=== PATIENT | female | born 1975 | race Caucasian/White ===

== ENCOUNTER 2018-09-10 12:48 | Outpatient (CLI) | payer MEDICAID, SELFPAY ==
--- NOTE | 2018-09-10 13:20 | DI.MAMMO_ITS ---
SYMPTOMS/DIAGNOSIS: SCREENING, Z12.39 MAMMOGRAMS: Mammograms were interpreted according to the usual protocol including computer analysis with CAD system, tomosynthesis and C view imaging. This is a baseline examination. No suspicious masses or microcalcifications are seen. There is no definite evidence of malignancy. IMPRESSION: Negative mammogram. Routine screening is recommended. Category 1, breast density B. MQSA ASSESSMENT OF FINDINGS: Negative. Category 1. Patient will receive a letter notifying them of these results. BI-RADS category B. There are scattered areas of fibroglandular density.
== END 2018-09-10 13:08 ==
PROVIDERS: PCP Internal Medicine; Visit Provider Nurse Practitioner Family
DX: Z12.31 Encounter for screening mammogram for malignant neoplasm of breast (principal)
CPT/HCPCS: 77063; 77067

== ENCOUNTER 2018-09-16 11:23 | Outpatient (REF) | payer MEDICAID, SELFPAY ==
--- NOTE | 2018-09-16 09:45 | PAPFT_PTH ---
PATIENT: Prabha Chen LOC: [facility] U#:[id number] AGE/SX: 42/F ROOM: RE09/16/[address]: FELISHA Barrera : 1975 BED: DIS: 09/16/2018 SPEC #: [id number] RECD: 09/16/18 12:45 STATUS: [place] REEsther #: [id number] MONCHO: 09/16/18 09:[address]: Jenn Dan DEPT: [facility] Cytology RECD BY: Mary Jane Sánchez ENTERED: 09/16/18 12:46 SP TYPE: PAPFT OTHR DR: Johnnie Peck Tissues: 1 - CX/ENDOCX FOR PAP SMEARS Procedures: PAP THIN PREP/UVM Screening HPV DNA PROBE Comments: [id number]
[2018-09-17 14:19] LABS: Chlamydia Result Negative; GC Result Negative; Specimen Description CERVIX
== END 2018-09-16 11:43 ==
LOC: LBN 11:23
PROVIDERS: PCP Internal Medicine; Visit Provider Nurse Practitioner Family
DX: Z11.3 Encounter for screening for infections with a predominantly sexual mode of transmission (principal); Z12.4 Encounter for screening for malignant neoplasm of cervix; Z11.51 Encounter for screening for human papillomavirus (HPV)
CPT/HCPCS: 87491; 87591; 88142; 87624

== ENCOUNTER 2019-11-23 13:52 | Outpatient (REF) | payer MEDICAID, SELFPAY | END 2019-11-23 14:12 | LOC: NCHCN 13:52 | PROVIDERS: PCP Internal Medicine; Visit Provider Nurse Practitioner Family | DX: N39.0 Urinary tract infection, site not specified (principal) | CPT/HCPCS: 87077; 87086; 87186 ==

== ENCOUNTER 2020-03-15 12:25 | Outpatient (REF) | payer MEDICAID, SELFPAY ==
[2020-03-20 11:28] LABS: Patient Race White; SARS-CoV-2 RNA Undetected (Undetected); SARS-CoV-2 Specimen Source Nasal
== END 2020-03-15 12:45 ==
LOC: NCHCN 12:25
PROVIDERS: PCP Internal Medicine; Visit Provider Physician Assistant
DX: Z20.828 Contact with and (suspected) exposure to other viral communicable diseases (principal)
CPT/HCPCS: U0003

== ENCOUNTER 2020-04-21 20:39 | Outpatient (REF) | payer MEDICAID, SELFPAY ==
[2020-04-21 20:09] LABS: BUN 10 mg/dL (7-18); CREATININE 0.84 mg/dL (0.55-1.02); Calcium 8.6 mg/dL (8.5-10.1); Calculated LDL 83 mg/dL (<100); Chloride 106 mmol/L (98-107); Cholesterol 156 mg/dL (<200); Glucose 97 mg/dL (74-106); HDL Cholesterol 59 mg/dL (40-60); Potassium 4.2 mmol/L (3.5-5.1); Sodium 141 mmol/L (136-145); TSH (W/Ref FT4) 1.78 uIU/mL (0.36-3.74); Triglyceride 73 mg/dL (<150)
== END 2020-04-21 20:59 ==
LOC: NCHCN 20:39
PROVIDERS: PCP Internal Medicine; Visit Provider Nurse Practitioner Family
DX: R63.5 Abnormal weight gain (principal); Z13.220 Encounter for screening for lipoid disorders; Z13.228 Encounter for screening for other metabolic disorders
CPT/HCPCS: 80048; 80061; 84443

== ENCOUNTER 2020-05-18 02:41 | Outpatient (CLI) | payer MEDICAID, SELFPAY ==
--- NOTE | 2020-05-18 | DI.MAMMO_ITS ---
EXAM: MAMMO SCREENING CLINICAL HISTORY: SCREENING, Z12.39. TECHNIQUE: Bilateral full field digital CC and MLO mammographic images were obtained with 3D tomosyn thesis and utilizing computer aided detection (CAD). COMPARISON: Prior baseline mammogram of September 2018 FINDINGS: In the lateral aspect of the right breast there is a new lobulated noncalcified nodule measuring 9 x 6 millimeters located 10 centimetres in from the nipple at approximately the 9-10 o'clock position. Nodular density seen on the MLO view of the same breast 7 centimetres in from the nipple probably rep resents the same nodule, lateral of center. The CC view that there is another slightly smaller nodul e located more laterally. There are no malignant-appearing microcalcification groups in this region or elsewhere in either [address]. No new left breast nodules evident. There is no significant architectural distortion nor skin t hickening-retraction. IMPRESSION: Compared to the prior mammogram 2019 there are new nodules evident in the right breast as described a fidelia. Breast ultrasound recommended. BI-RADS Category 0 - Assessment Incomplete: Need additional imaging evaluation Breast Density - Category B - Scattered areas of fibroglandular density Breast density Category C or D implies that the patient has dense breast tissue. Dense breast tissue can make it harder to find cancer on a mammogram. Dense breast tissue is also associated with an incr eased risk of breast cancer. This information about the result of the mammogram report was provided to the patient to raise their awareness. Use this report when you speak with the patient about their risks for breast cancer, which includes their family history. At that time, you may recommend additional screening tests (Ultrasoun d or MRI) as these tests may add significant information. A negative radiographic report should not delay biopsy if a dominant or clinically suspicious mass is present. Up to ten percent of cancers are not identified on mammography. A negative report may reinforce clinical impression. Adenosis and dense breasts may obscure an underlying neoplasm. False positive reports average 6 to 10%. Patient will receive a letter notifying them of these results.
== END 2020-05-18 03:01 ==
PROVIDERS: PCP Nurse Practitioner Family; Visit Provider Nurse Practitioner Family
DX: N63.12 Unspecified lump in the right breast, upper inner quadrant (principal); Z12.31 Encounter for screening mammogram for malignant neoplasm of breast
CPT/HCPCS: 77063; 77067

== ENCOUNTER 2020-05-26 03:28 | Outpatient (CLI) | payer MEDICAID, SELFPAY ==
--- NOTE | 2020-05-26 | DI.US_ITS ---
EXAM: MG MAMMO SCREEN CALL BACK UNI and U/S breast RT limited CLINICAL HISTORY: F/U MAMMO, NEW RT BREAST NODULE. TECHNIQUE: Craniocaudal and mediolateral oblique Full Field Digital Mammography views of the right b reast with Computer Aided Diagnosis followed by Tomosynthesis and right breast ultrasound. COMPARISON: Priors available for comparison. FINDINGS: Mammography/Tomosynthesis: Masses/Architectural Distortion: Additional views show a cluster of well-circumscribed nodules in the upper outer quadrant of the right breast. (9-10 o'clock). The 2nd collection previously noted late rally in the right breast appear to represent vessels. Microcalcifictions: No suspicious pleomorphic-type are seen. Skin Thickening/Nipple Retraction: None. Right breast US: Echotexture: Normal appearance of the glandular tissue. Shadowing: No suspicious foci. Cyst: A collection of 3 simple cysts is seen at the 9 o'clock position of the right breast 7 cm from the nipple. These would likely a correspond to the mammographic abnormality. Solid lesions: None seen. Ductal dilation: None. IMPRESSION: 1. No evidence of malignancy is noted. 2. A six-month follow-up right mammogram is recommended for re-evaluation. 3. The findings were discussed with the patient on the date of the examination. BI-RADS Category 3 - 6 month - Probably Benign Finding: Recommend follow-up mammography in 6 months Breast Density - Category B - Scattered areas of fibroglandular density Breast density Category C or D implies that the patient has dense breast tissue. Dense breast tissue can make it harder to find cancer on a mammogram. Dense breast tissue is also associated with an incr eased risk of breast cancer. This information about the result of the mammogram report was provided to the patient to raise their awareness. Use this report when you speak with the patient about their risks for breast cancer, which includes their family history. At that time, you may recommend additional screening tests (Ultrasoun d or MRI) as these tests may add significant information. A negative radiographic report should not delay biopsy if a dominant or clinically suspicious mass is present. Up to ten percent of cancers are not identified on mammography. A negative report may reinforce clinical impression. Adenosis and dense breasts may obscure an underlying neoplasm. False positive reports average 6 to 10%. Patient will receive a letter notifying them of these results.
== END 2020-05-26 03:48 ==
PROVIDERS: PCP Nurse Practitioner Family; Visit Provider Nurse Practitioner Family
DX: R92.8 Other abnormal and inconclusive findings on diagnostic imaging of breast (principal); N63.11 Unspecified lump in the right breast, upper outer quadrant; N60.01 Solitary cyst of right breast
CPT/HCPCS: 76642; 77063; 77067

== ENCOUNTER 2020-10-04 11:19 | Outpatient (REF) | payer MEDICAID, SELFPAY ==
[2020-10-05 13:12] LABS: COVID-19 RT-PCR UVMMC Result Negative (Negative)
== END 2020-10-04 11:20 | disposition home or self-care (01) ==
LOC: NCHCN 11:19
PROVIDERS: PCP Nurse Practitioner Family; Visit Provider Nurse Practitioner Family
DX: Z20.822 Contact with and (suspected) exposure to COVID-19 (principal); J06.9 Acute upper respiratory infection, unspecified
CPT/HCPCS: U0003

== ENCOUNTER 2021-04-04 01:32 | Outpatient (CLI) | payer MEDICAID, SELFPAY ==
--- NOTE | 2021-04-04 14:04 | DI.MAMMO_ITS ---
Exam(s) MAMMO DIAGNOSTIC BI EXAM: MAMMO DIAGNOSTIC BI CLINICAL HISTORY: SHORT TERM F/U, F/U ABNL MAMMO, R92.8. TECHNIQUE: Craniocaudal and mediolateral oblique Full Field Digital Mammography views of the bilater al breast with Computer Aided Diagnosis followed by Tomosynthesis. COMPARISON: Priors available for comparison. FINDINGS: Mammography/Tomosynthesis: Masses/Architectural Distortion: The well-circumscribed nodules in the outer right breast appears sta ble. No suspicious masses or areas of architectural distortion are identified. Microcalcifictions: No suspicious pleomorphic-type are seen. Skin Thickening/Nipple Retraction: None. IMPRESSION: 1. No evidence of malignancy is noted. 2. Unless there is more urgent need, follow-up screening mammography is recommended, as per [place] [employer] guidelines. 3. The findings were discussed with the patient on the date of the examination. BI-RADS Category 1 - Negative Breast Density - Category B - Scattered areas of fibroglandular density Breast density Category C or D implies that the patient has dense breast tissue. Dense breast tissue can make it harder to find cancer on a mammogram. Dense breast tissue is also associated with an incr eased risk of breast cancer. This information about the result of the mammogram report was provided to the patient to raise their awareness. Use this report when you speak with the patient about their risks for breast cancer, which includes their family history. At that time, you may recommend additional screening tests (Ultrasoun d or MRI) as these tests may add significant information. A negative radiographic report should not delay biopsy if a dominant or clinically suspicious mass is present. Up to ten percent of cancers are not identified on mammography. A negative report may reinforce clinical impression. Adenosis and dense breasts may obscure an underlying neoplasm. False positive reports average 6 to 10%. Patient will receive a letter notifying them of these results.
== END 2021-04-04 01:52 ==
PROVIDERS: PCP Nurse Practitioner Family; Visit Provider Nurse Practitioner Family
DX: R92.8 Other abnormal and inconclusive findings on diagnostic imaging of breast (principal)
CPT/HCPCS: 77062; 77066; G0279

== ENCOUNTER 2022-11-22 17:31 | Outpatient (REF) | payer MEDICAID, SELFPAY ==
--- NOTE | 2022-11-22 10:00 | SKI_PTH ---
PATIENT: Prabha Chen LOC: [facility] U#:[id number] AGE/SX: 47/F ROOM: RE11/22/[address]: Yessy Mondragon : 1975 BED: DIS: 11/22/2022 SPEC #: [id number] RECD: 11/22/22 18:37 STATUS: AMERICA REQ #: [id number] MONCHO: 11/22/22 10:[address]: Yessy Mondragon DEPT: Surgical Specimen RECD BY: Mary Jane Sánchez ENTERED: 11/22/22 18:37 SP TYPE: JOSE AGUIRRE DR: Marychuy Keller Tissues: 1 - SKIN BIOPSY(SHAVE/PUNCH) Procedures: SKIN LEVEL 4 Comments: [id number]
== END 2022-11-22 17:32 | disposition home or self-care (01) ==
LOC: NCHCN 17:31
PROVIDERS: PCP Nurse Practitioner Family; Visit Provider Physician Assistant
DX: L82.1 Other seborrheic keratosis (principal)
CPT/HCPCS: 88305

== ENCOUNTER → 2023-03-07 01:25 | Outpatient (CLI) | payer MEDICAID, SELFPAY ==
--- NOTE | 2023-03-07 | DI.MAMMO_ITS ---
Exam(s) MAMMO SCREENING EXAM: MAMMO SCREENING CLINICAL HISTORY: SCREENING, Z12.39 TECHNIQUE: Bilateral full field digital CC and MLO mammographic images were obtained with 3D tomosyn thesis and utilizing computer aided detection (CAD). COMPARISON: Available for comparison. FINDINGS: Masses/Architectural Distortion: Since the prior examination the patient has undergone a bilateral br east reduction. No suspicious masses or suspicious areas of architectural distortion are seen. Microcalcifications: No suspicious pleomorphic-type are seen. Skin Thickening/Nipple Retraction: None. IMPRESSION: 1. No significant interval change with no specific features of malignancy noted. 2. Unless there is more urgent need, screening mammography is recommended, as per [place] [employer] guidelines. BI-RADS Category 1 - Negative Breast Density - Category B - Scattered areas of fibroglandular density Breast density category C or D implies that the patient has dense breast tissue. Dense breast tissue is very common and is not abnormal but dense breast tissue can make it harder to find cancer on a ma mmogram. Also, dense breast tissue may increase their breast cancer risk. This information about the result of the mammogram report was provided to the patient to raise their awareness. Use this report when you speak with the patient about their risks for breast cancer, which includes their family hist ory. At that time, you may recommend for more screening tests (Ultrasound or MRI) as they might be us eful based on their risk. A negative radiographic report should not delay biopsy if a dominant or clinically suspicious mass is present. Up to ten percent of cancers are not identified on mammography. A negative report may reinforce clinical impression. Adenosis and dense breasts may obscure an underlying neoplasm. False positive reports average 6 to 10%. Patient will receive a letter notifying them of these results.
== END ==
PROVIDERS: PCP Nurse Practitioner Family; Visit Provider Physician Assistant
DX: Z12.31 Encounter for screening mammogram for malignant neoplasm of breast (principal)
CPT/HCPCS: 77063; 77067

== ENCOUNTER 2024-01-15 13:35 | Outpatient (REF) | payer SELFPAY ==
--- NOTE | 2024-01-15 14:35 | PAPFT_PTH ---
PATIENT: Prabha Chen LOC: [facility] U#:[id number] AGE/SX: 48/F ROOM: RE01/15/[address]: Yessy Mondragon : 1975 BED: DIS: 01/15/2024 SPEC #: [id number] RECD: 01/16/24 17:59 STATUS: AMERICA REEsther #: [id number] MONCHO: 01/15/24 14:[address]: Yessy Mondragon DEPT: [facility] Cytology RECD BY: Mary Jane Sánchez Tissues: 1 - CX/ENDOCX FOR PAP SMEARS Procedures: PAP THIN PREP/UVM Screening HPV DNA PROBE Comments: [id number] (HPV 16 & 18/45)
--- OUTSIDE RECORDS SUMMARY | 2024-01-16 13:41 | XMS_ITS | Encounter Summary ---
Author Organization [facility] [place] [address] Care Team Providers Care Hotel Services Supervisor Name Role Phone Yessy Mondragon Primary Care Provider [phone] Reason for Visit * Reason Comments Follow Up Surgery S/p BBR 03/13/22 Encounter Details Date Type Department Care Team (Late st Contact Info) Description 09/20/2022 3:00 PM EDT Office Visit [place] [address] Karl Rivera MD [facility] [place] [address] Surgery follow-up Social History Tobacco Use Types Packs/Day Years Used Date Smoking Tobacco: Never Smokeless Tobacco: Never Alcohol Use Standard Drinks/Week Comments Yes 3 (1 standard drink = 0.6 oz pur e alcohol) not in Sex and Gender Information Value Date Recorded Sex Assigned at Not on file Gender Identity Not on file Sexual Orientation Not on file documented as of this encounter Progress Notes * Jayshree Damon - 09/20/2022 3:00 PM EDT Plastic Surgery Post Op Note Provider: MD Prabha Newman Gustavo returned to our office today for post surgical follow-up Date of surgery: 03/13/22 Procedure(s): Bilateral breast reduction (Miguel) Complications: None reported HPI: Doing well; pleased with the outcome of surgery. Patient still has some loss of left side NAC sensation--however, she is not at all concerned about that. Patient's back and neck pain are much improved. Patient is very happy with her results and she shares that her 9 yr old son remarked that Mom, you look taller. Her posture has improved post surgery. Physical Examination: General: Alert, comfortable, conversant, ambulating Breasts: Good symmetry Good scar maturation No masses NAC well healed and viable Photos were taken at today's visit. Impression: Healing well after bilateral breast reduction. Plan: Follow up PRN May resume mammograms as recommended by PCP. Final photos. No restrictions. No further active care required. I, Jayshree Damon, have performed the documentation for this encounter in the presence of and acting as a scribe for Karl Rivera MD. documented in this encounter Plan of Treatment Not on file documented as of this encounter Visit Diagnoses Diagnosis Surgery follow-up Follow-up examination, following unspecified surgery documented in this encounter Care Teams Hotel Services Supervisor Relationship Specialty Start Date End Date Yessy Mondragon PA [address] [place] [id number] PCP - General Family Medicine 01/03/22 documented as of this encounter
--- OUTSIDE RECORDS SUMMARY | 2024-01-16 13:41 | XMS_ITS | Encounter Summary ---
[place] [address] Care Team Providers Care Gum Worker Name Role Phone Yessy Mondragon Primary Care Provider [phone] Encounter Details Date Type Department Care Team (Latest Contact Info) Description 03/26/2022 Travel Social History Tobacco Use Types Packs/Day Years Used Date Smoking Tobacco: Never Smokeless Tobacco: Never Alcohol Use Standard Drinks/Week Comments Yes 3 (1 standard drink = 0.6 oz pur e alcohol) not in Sex and Gender Information Value Date Recorded Sex Assigned at Not on file Gender Identity Not on file Sexual Orientation Not on file documented as of this encounter Plan of Treatment Not on file documented as of this encounter Visit Diagnoses Not on filedocumented in this encounter Care Teams Gum Worker Relationship Specialty Start Date End Date Yessy Mondragon PA [address] [place] [address] PCP - General Family Medicine 01/03/22 documented as of this encounter
--- OUTSIDE RECORDS SUMMARY | 2024-01-16 13:41 | XMS_ITS | Clinical Summary ---
[place] [address] Care Team Providers Care Horticulture Worker Name Role Phone Yessy Mondragon Primary Care Provider [phone] Allergies No known active allergies Medications Medication Sig Dispensed Refills Start Date End Date Status ibuprofen (Advil) 200 mg Tablet Take 200 mg by mouth every 6 hours as needed for Pain. Active Active Problems No known active problems Family History Medical History Relation Comments Congenital Anomalies Cousin webbed toes Alcohol Use Disorder Father fr om liver ca and hep B @ 64y Seizure Disorder Father of Baby Jadiel onset unique ology unknown Seizure Disorder Father of Baby Relative Jadiel's mom etiology unknown Loss Mother 2 early sabs unk nown etiology Relation Status Comments Cousin Father Father of Baby Father of Baby Relative Mother Social History Tobacco Use Types Packs/Day Years Used Date Smoking Tobacco: Never Smokeless Tobacco: Never Alcohol Use Standard Drinks/Week Comments Yes 3 (1 standard drink = 0.6 oz pur e alcohol) not in Sex and Gender Information Value Date Recorded Sex Assigned at Not on file Gender Identity Not on file Sexual Orientation Not on file Last Filed Vital Signs Vital Sign Reading Time Taken Comments Blood Pressure 103/67 03/13/2022 10:15 AM EST Pulse 63 03/13/2022 10:15 AM EST Temperature 37 ??C (98.6 ??F) 03/26/2022 2:11 PM EST Respiratory Rate 16 03/13/2022 10:15 AM EST Oxygen Saturation 99% 03/13/2022 10:15 AM EST Inhaled Oxygen Concentration - - Weight 80.3 kg (177 lb) 01/25/2022 10:15 AM EDT Height 175.3 cm (5' 9) 01/25/2022 10:15 AM EDT Body Mass Index 26.14 01/25/2022 10:15 AM EDT Plan of Treatment Health Maintenance Due Date Last Done Comments CT Colonography 1975 Colonoscopy 1975 Colorectal Cancer Screening 1975 FIT DNA 1975 FIT 1975 Sigmoidoscopy (10 year) with FIT yearly 1975 Sigmoidoscopy 1975 HIV screen 11/14/1995 Hepatitis C Screening 11/14/1995 Hepatitis B vaccine (0-59 yrs) (1) 1996 Tdap adult 1996 Tetanus vaccine 1996 HPV test 11/14/2007 PAP Smear 11/14/2007 Breast Cancer Share Decision Needed 2017 Breast Cancer screening 2017 Diabetes Screening (HgbA1C or Glucose) 2017 Covid-19 Vaccine ( season) 2024 Influenza (Flu) vaccine (1 o f 1 - Influenza standard series) 01/05/2024 Advance Directives * Attempt Cardiopulmonary Resuscitation - Inpatient (Latest Code Status on File) Date Activated Date Inactivated Comments 03/13/2022 7:18 AM 03/13/2022 12:44 PM Question Answer Comments Code Status decision made by: Patient Care Teams Horticulture Worker Relationship Specialty Start Date End Date Yessy Mondragon PA [address] [place] [address] PCP - General Family Medicine 01/03/22
--- OUTSIDE RECORDS SUMMARY | 2024-01-16 13:41 | XMS_ITS | Encounter Summary ---
[place] [address] Care Team Providers Care Ballast Cleaning Operator Name Role Phone Yessy Mondragon Primary Care Provider Encounter Details Date Type Department Care Team (Latest Contact Info) Description 09/20/2022 Travel Social History Tobacco Use Types Packs/Day [...] on filedocumented in this encounter Care Teams Ballast Cleaning Operator Relationship Specialty Start Date End Date Yessy Mondragon PA [address] [place] [address] PCP - General Family Medicine 01/03/22 documented as of this encounter
--- OUTSIDE RECORDS SUMMARY | 2024-01-16 13:41 | XMS_ITS | Encounter Summary ---
Author Organization [facility] Address [address] [place] [address] Care Team Providers Care Correctional Counselor/Case Manager Name Role Phone Unknown, Provider Primary Care Provider [phone] Encounter Details Date Type Department Care Team (Late st Contact Info) Description 04/25/2015 Results Only [facility] [phone] Deya Liriano, [address] [phone] Social History Tobacco Use Types Packs/Day Years Used Date Smoking Tobacco: Never Assessed Sex and Gender Information Value Date Recorded Sex Assigned at Not on file Gender Identity Not on file Sexual Orientation Not on file documented as of this encounter Plan of Treatment Not on file documented as of this encounter Procedures Procedure Name Priority Date/Time Associated Diagnosis Comments PAP TEST- RESULT ONLY Routine 04/25/2015 0:00 EST documented in this encounter Results * PAP TEST- RESULT ONLY (04/25/2015 0:00 EST) Pathology Report: CYTOPATHOLOGY REPORT Reports generated via electronic interface contain original data; however they are lacking the format of the original report. Caution should be taken when reading/interpreti ng unformatted reports. Name: ? CHAITANYA OLVERA ? Accession #: ? [id number] ? : ? 1975 (Age: 39) ??F ?Collect Date: ? 04/25/2015 ? Location: ? [facility] ? Receive Date: ? 04/26/2015 ? Provider: DEYA LIRIANO [facility] Copy to: CLAIRE LOMELI MD ? Final Report SPECIMEN ADEQUACY ? Satisfactory for Evaluation - transformation zone component present GENERAL CATEGORIZATION ? Negative for Intraepithelial Lesion or Malignancy INTERPRETATION ? Reactive cellular changes associated with inflammation present (includes repair). Last Menstrual Period: 06/08/14 Menstrual/Pregnanc y Status: ??Post Specimen/Source: ??Pap Test, Endocervix, ThinPrep Imaging System with manual evaluation Document reviewed and electronically signed by: ? DAMIAN SMITH MD ? Report ??Date: 05/03/2015 13:13 HPV with Pap Test ? Date Ordered: ? 05/03/2015 ? Status: ?? Signed Out ?Date Complete: ? 05/04/2015 ? By: ??System Interface ? Date Reported: ? 05/04/2015 ? Interpretation RESULT: Negative for HPV. No E6 or E7 mRNA is detected from HPV types 16,18,31,33,35, 39,45,51,52,56,58, 59,66, and 68 by glass pulverizer equipment operator mediated amplification. Comments Document reviewed and electronically signed by: ? System Interface ? Report date: 05/04/2015 By the signature above, the attending physician certifies that he/she has personally conducted a gross and/or microscopic examination of the described specimens and rendered or confirmed the above diagnosis. End of Report [facility] 04/25/2015 04/26/2015 Deya Liriano [facility] ORDBarb [facility] [address] [place] [address] documented in this encounter Visit Diagnoses Not on filedocumented in this encounter Care Teams Correctional Counselor/Case Manager Relationship Specialty Start Date End Date Unknown, Provider, PCP - General 04/26/15 documented as of this encounter
--- OUTSIDE RECORDS SUMMARY | 2024-01-16 13:41 | XMS_ITS | Encounter Summary ---
Author [place] [address] Care Team Providers Care Differential Repairer Name Role Phone Yessy Mondragon Primary Care Provider Encounter Details Date Type Department Care Team (Latest Contact Info) Description 03/20/2022 Travel Social History Tobacco Use Types Packs/Day [...] on filedocumented in this encounter Care Teams Differential Repairer Relationship Specialty Start Date End Date Yessy Mondragon PA [address] [place] [address] PCP - General Family Medicine 01/03/22 documented as of this encounter
--- OUTSIDE RECORDS SUMMARY | 2024-01-16 13:41 | XMS_ITS | Continuity of Care Document ---
Author Organization [facility] Address [address] [place] [address] Care Team Providers Care Wire Temperer Name Role Phone Marychuy Keller Primary Care Physician [facility] [id number] Date(s): 01/30/22 - 01/30/[address] [address] Discharge Disposition: Home or Self Care Attending Physician: Jenn Ragland NP Admitting Physician: Jenn Ragland NP Referring Physician: Jenn Ragland ACID CONDITIONING WORKER Allergies, Adverse Reactions, Alerts No Known Medication Allergies Assessment and Plan Future Appointments Immunizations Given and Recorded Vaccine Date Status Refusal Reason SARS-CoV-2 (COVID-19) mRNA-1273 vaccine 09/15/20 R ecorded SARS-CoV-2 (COVID-19) mRNA-1273 vaccine 08/18/20 R ecorded Medications Glucosamine Chondroitin Advanced oral tablet with turmeric, 0 Refill(s) Start Date: 01/04/22 Status: Ordered multivitamin adult, oral tablet 1 tab, Oral, Daily, # 90 tab, 0 Refill(s) Start Date: 01/04/22 Status: Ordered Probiotic Formula (Bacillus Coagulans) oral capsule 1 cap, Oral, Daily, # 30 cap, 0 Refill(s) Start Date: 01/04/22 Status: Ordered Problem List Condition Effective Dates Status Health Status Inform ant Upper back pain(Confirmed) Active Macromastia(Confirmed) Active Sciatica of right side(Confirmed) Active Snoring(Confirmed) Active Social History Social History Type Response Tobacco Never tobacco user T obacco Use:. Sex Female Patient Care team information Personnel Name: Marychuy Keller Address: Address: Family Medicine [address] [place] [phone]
--- OUTSIDE RECORDS SUMMARY | 2024-01-16 13:41 | XMS_ITS | Encounter Summary ---
[facility] [place] [address] Care Team Providers Care Pediatric Dentist Name Role Phone Yessy Mondragon Primary Care Provider [phone] Reason for Visit * Reason Comments Follow Up Surgery S/p BBR 03/13 - rash and redness onset 03/23 Encounter Details Date Type Department Care Team (Latest Contact Info) Description 03/26/2022 2:30 PM EST Clinical [place] [id number] Follow-up examination, following other surgery Social History Tobacco Use Types Packs/Day Years Used Date Smoking Tobacco: Never Smokeless Tobacco: Never Alcohol Use Standard Drinks/Week Comments Yes 3 (1 standard drink = 0.6 oz pur e alcohol) not in Sex and Gender Information Value Date Recorded Sex Assigned at Not on file Gender Identity Not on file Sexual Orientation Not on file documented as of this encounter Last Filed Vital Signs Vital Sign Reading Time Taken Comments Blood Pressure - - Pulse - - Temperature 37 ??C (98.6 ??F) 03/26/2022 2:11 PM EST Respiratory Rate - - Oxygen Saturation - - Inhaled Oxygen Concentration - - Weight - - Height - - Body Mass Index - - documented in this encounter Patient Instructions * Patient Instructions* Debi Hamilton RN - 03/26/2022 2:30 PM EST Patient Instructions Follow up: Call [phone] to schedule an appointment if rash does not resolve Care of Incision/Wound: Begin taking benadryl as needed for symptom relief Apply anti itch topical, avoid incisions Activity Restrictions: From the date of your surgery we would request that you don't do any heavy, lifting, pushing, pulling, anything over 5 pounds for 6 weeks after your surgery, Unless other restrictions were discussed with your surgeon. Wear compression bra around the clock for a total of 6 weeks Spitting sutures: Occasionally an area of redness and tenderness develops where a dissolving stitchbecomes irritated and pushes to the surface. This stitch is clear or white and looks like fish line. If this occurs, it is not an emergency. You may clip the stitch or call the clinic for an appointment with the nurse. Signs of Infection : A temperature over 100.4 F or 38 C. Redness at the incision line that is beginning to spread away from the incision after the first 48 hours. Yellow pus-like or foul smelling drainage larger than a dime size from the incision or drain sites. Increased pain / discomfort that is not relieved by your pain medicine such as extra strength tylenol, or NSAIDS For any questions or concerns, please call our nurse's line at [phone] M - F 8 - 5 For after hours, and on weekends; Call [phone] and ask for our plastic surgeon agriculture consultant documented in this encounter Progress Notes * Debi Hamilton RN - 03/26/2022 2:30 PM EST Images from the original note were not included. Reason for Visit: Postoperative Evaluation s/p 03/13/22 Bilateral breast reduction [facility] POD # 13 Prabha is here for a question of infection and possible rash. Subjective: Prabha states she has mild discomfort, she states has had good relief from tylenol. She denies any fevers or chills but is concerned about the spreading redness that started on Saturday. She states that the redness is itchy. Objective: Audra Menard APRN in to examine Bruising: mild bilaterally breasts Swelling: mild bilaterally breasts Bilateral breast with good symmetry, NACs with good perfusion Sutures absorbable,,incision well approximated, Rash as seen in photos above - on abdomen, breasts, neck, bilateral upper arms and back Assessment: No signs of delayed healing or fluid collection.Incisions CDI. Plan: We reviewed post op instructions including: Activity restrictions : Provided in AVS Begin scar massage in four to six weeks, instructions provided in avs. We reviewed signs and symptoms of infection, spitting sutures, parameters for normal post op swelling and bruising. We reviewed sun precautions, increase protein in the diet. We reviewed communication through [facility] portal, and correct phone numbers to call for concerns on AVS, Dressing instructions: Benadryl as needed for symptom relief Anti itch topical - sarna lotion, avoid incisions Prabha expressed understanding of instructions,and agrees with the plan of care. Follow up if rash does not resolve. documented in this encounter Plan of Treatment Not on file documented as of this encounter Visit Diagnoses Diagnosis Follow-up examination, following other surgery documented in this encounter Care Teams Pediatric Dentist Relationship Specialty Start Date End Date Yessy Mondragon PA [address] [place] [id number] PCP - General Family Medicine 01/03/22 documented as of this encounter
--- OUTSIDE RECORDS SUMMARY | 2024-01-16 13:41 | XMS_ITS | Continuity of Care Document ---
Author Organization [facility] Address [address] [place] [address] Care Team Providers Care Fire Prevention Inspector Name Role Phone CRESCENCIO MUNGUIA Dentist Assessment No assessment recorded. Plan of Treatment Reminders Order Date Submit Date Provider Last Modified By Organization Details Last Modified Time Details Appointments Nurse Visit 20 2023 08:00A M Not available Not available Not available Lab lipid panel, serum [address] [facility] (Registration ), [address] [place] [address] [place], [address], 01/15/2024 14:52:02 CMP, serum or plasma [address] [facility] (Registration ), [address] [place] [address] Dr [facility] [place], [address], 01/15/2024 14:52:02 influenza virus A + B + SARS-CoV- 2 (COVID19) Ag panel, rapid IA, upper respirato ry specimen [address] [facility] [place], [address] [place] [address] [address], [place], [address], 01/15/2024 15:21:00 HbA1c (hemoglob in A1c), blood [address] [facility] (Registration ), [address] [place] [address] [place], [address], 01/15/2024 14:52:02 hepatitis C virus Ab, serum 2023 024 [email or web address] [facility] (Registration ), [address] [place] [address] [place], [address], 01/15/2024 14:52:02 HIV (1+2) Ab screen, serum 2023 024 [email or web address] [facility] (Registration ), [address] [place] [address] [place], [address], 01/15/2024 14:52:01 Referral None recorded. Procedures None recorded. Surgeries None recorded. Imaging MAMMO, screening , bilateral - due in march 142023 024 [facility], [address] , [place], [address], 01/16/2024 08:01:05 Medication Orders None recorded. Patient TargetsNo targets recorded. Patient Instructions Encounter Date Encounter Id Patient Instructions Last Modified By Organization Details Last Modified Time 01/15/2024 [id number] Schedule appt here for {{fasting blood work (water or black coffee only for at least 8 hours)* bloodwork X-ray }} (no appointment needed), please allow up to 2 weeks to hear about results {{[facility] ([facility])* Roberta lei [facility] ([facility]) [facility] ([facility]) [facility] ([facility]) [facility] ([facility]) [facility] ([facility]) [facility]}} will contact you to schedule {{bone density CT scan Heart Monitor mammogram * MRI Ultrasound Stress Test Xray}} to be done in march Call with any questions or concerns aubrey Not available 01/15/2024 14:53:02 Reason for Referral None Reported. Results Created Date Observation Date Name Description Value Unit Range Abnormal Flag Note LastModifiedBy Organization Detail LastModifiedTime 01/15/20 24 01/15/2024 influ maile virus A + B + SARS- CoV-2 (COVI D19) Ag panel , rapid IA, upper respi rator y speci men Influenza A negati ve Not Available [facility] [address], [place], [address], 01/15/2024 15:01:56 01/15/20 24 01/15/2024 influ maile virus A + B + SARS- CoV-2 (COVI D19) Ag panel , rapid IA, upper respi rator y speci men Influenza B negati ve Not Available [facility] [address], [place], [address], 01/15/2024 15:01:56 01/15/20 24 01/15/2024 influ maile virus A + B + SARS- CoV-2 (COVI D19) Ag panel , rapid IA, upper respi rator y speci men SARS-COV-2 negati ve Not Available [facility] [address], [place], [address], 01/15/2024 15:01:56 Result Notes None recorded. Problems Name Problem SNOMED Code Status Onset Date Resolution Date Notes Provider Name and Address Organization Details Recorded Time Adult health examinat ion Active 201911/23/19 23 - Comments only - Yessy GIBBS - Declines colonosc opy at this time but will call if she changes her mind. She states that if she did go she would want to go to [facility]. Patient wants to wait till March to have mammogra m as she has these done every 2 years. Up-to-da te on immuniza tions. Pap smear will be due next year. Discussi on about healthy lifestyl e choices. She is up-to-da te on blood work. Problem Code: Z00.00; Problem Code Type: ICD-10; Not Available [facility] 04:[facility]12 Hypertro phy of breast 735493372 Active 201511/22/19 22 - Comments only - Yessy GIBBS - /upper back pain - referral to [facility] plastic surgery for breast reductio n Problem Code: N62; Problem Code Type: ICD-10; Not Available [facility] 3 04:46:12 Acute sinusiti s 82349781 Completed 201607/10/2016 Problem Code: J01.90; Problem Code Type: ICD-10; Not Available [facility] 3 04:46:12 Acute pharyngi tis 506854833 Completed 201905/28/2019 Problem Code: J02.9; Problem Code Type: ICD-10; Not Available [facility] 3 04:46:12 Streptoc occal sore throat 75036230 Completed 201906/10/2019 05/27/19 20 - Comments only - Yessy GIBBS - - rx for augmenti n - salt water gargles - plenty of rest and fluids - f/u if not improvin g or worsenin g symptoms Problem Code: J02.0; Problem Code Type: ICD-10; Not Available [facility] 3 04:46:12 Right side sciatica 70461013222 9101 Completed 201901/30/2023 11/12/19 20 - Comments only - Johnnie Peck MD - Prabha probably does have a slipped disc but she is already experien serena some intermit tent improvem ent. I reviewed data about long-ter m improvem ent can also the poor statisti cs regardin g back surgery. Her insuranc e is unlikely to cover MR before she is had 4 to 6 weeks of PT and she is already engaged in that starting now. We will let her have cycloben zaprine at night so she can sleep better. Continue with the ibuprofe n and add omeprazo le to protect her stomach. She is motivate d to avoid opiates. If she is not getting adequate sleep and pain relief with that combo will consider gabapent in. Discusse d other modaliti es such as acupunct ure, chiropra ctic, but she is not eager to do any of those. She is stay as active as possible . Likely with the warm weather she can swim. Problem Code: M54.31; Problem Code Type: ICD-10; Not Available [facility] 3 04:46:12 Increase d frequenc y of urinatio n 935961084 Completed 201911/24/2019 Problem Code: R35.0; Problem Code Type: ICD-10; Not Available [facility] 3 04:46:12 Exposure to communic able disease Completed 201903/16/2020 Problem Code: Z20.828; Problem Code Type: ICD-10; Not Available [facility] 3 04:46:12 Screenin g for malignan t neoplasm of breast Active 2019 Problem Code: Z12.39; Problem Code Type: ICD-10; Not Available [facility] 3 04:46:12 Chronic sinusiti s 35382935 Completed 202010/25/2020 10/05/19 21 - Comments only - Marychuy Keller RN SURGICAL - Covid test obtained today. I think she has a sinus infectio n but better to be on the safe side. Rx for azithrom ycin and a Medrol Dosepak. She is planning on resting today and tomorrow . Follow-u p if not mckayvin g. Problem Code: J32.9; Problem Code Type: ICD-10; Not Available [facility] 3 04:46:13 Acute pharyngi tis 280607293 Completed 202211/05/2022 11/03/19 23 - Comments only - Johnnie Peck MD - Almost certainl y viral illness, same as her daughter s. Symptoma tic measures . SS negative . Problem Code: J02.9; Problem Code Type: ICD-10; Not Available [facility] 3 04:46:13 Neoplasm of uncertai n behavior of skin 40854164 Completed 202211/29/2022 11/23/19 23 - Comments only - Yessy GIBBS - REINALDO E: Shave Biopsy Location : L lateral midback The risks, benefits , options and complica tions of shave biopsy have been discusse d with pt. The risks include the chance of infectio n and scarring . Pt gives verbal consent. Denies allergie s to lidocain e, and iodine. The site was prepped with Iodine and the skin locally anesthet ized with 1 cc of 1% Lidocain e. Superfic ial layers removed by shave biopsy with dermabla de Hemostas is obtained with pressure and silver nitrate. No complica tions were encounte red. The wound was dressed with antibiot ic ointment and a band-aid . Wound care discusse d. Specimen sent for patholog y. Keep wound dry and covered for 24-48 hr Problem Code: D48.5; Problem Code Type: ICD-10; Not Available [facility] 3 04:46:13 Hypertro phic conditio n of skin 34146915 Active 202211/23/19 23 - Comments only - Yessy GIBBS - Risk and benefits of cryosurg keya explaine d to patient. Patient gives verbal consent for procedur e. Cryosurg keya performe d x3 until adequate sanchez ball achieved . Patient tolerate d well without any complica tions. Discusse d aftercar e and signs and symptoms of infectio n Problem Code: L91.8; Problem Code Type: ICD-10; Not Available [facility] 3 04:46:13 Pain in thoracic spine 258842321 Completed 201508/14/2018 Problem Code: M54.9; Problem Code Type: ICD-10; Not Available [facility] 3 04:46:15 Hyperlip idemia screenin g Completed 201911/21/2021 Problem Code: Z13.220; Problem Code Type: ICD-10; Not Available [facility] 3 04:46:15 Neck pain 24561884 Completed 201508/14/2018 Problem Code: M54.2; Problem Code Type: ICD-10; Not Available [facility] 3 04:46:15 Snoring 32283460 Completed 201911/22/2022 Problem Code: R06.83; Problem Code Type: ICD-10; Not Available [facility] 3 04:46:16 Pain in thoracic spine 261699655 Completed 202111/22/2022 Problem Code: M54.9; Problem Code Type: ICD-10; Not Available [facility] 3 04:46:17 Urinary tract infectio us disease 74605114 Completed 201904/20/2020 Problem Code: N39.0; Problem Code Type: ICD-10; Not Available [facility] 3 04:46:17 Abnormal weight gain 569587989 Completed 201911/21/2021 Problem Code: R63.5; Problem Code Type: ICD-10; Not Available [facility] 3 04:46:17 Pain of left shoulder joint 50197301367 351809 Completed 201911/21/2021 Problem Code: M25.512; Problem Code Type: ICD-10; Not Available [facility] 3 04:46:17 Family history of diabetes mellitus 779131485 Active 2023 YESSY SAAB PA-C [facility] [address], [place], [address] , [facility] 4 14:50:57 Problem Notes None recorded. Medical Equipment None Reported. Allergies No known drug allergies Medications Name Sig Start Date Stop Date Status Note LastModified by Organization Details LastModified Time multivitami n tablet Take 1 tablet by mouth once a day active Not Available Not Available No t Available cyclobenzap rine 10 mg tablet Take 1 tablet by mouth every night as needed 10/04 completed Not Available Not Available Not Available ibuprofen 200 mg capsule 3 tablets prn 2019 active Not Available Not Available Not Avai lable Pyridium 100 mg tablet 1-2 tablet by mouth three times a day as needed 10/04 completed Not Available Not Available Not Available methylpredn isolone 4 mg tablet Take 1 tablet by mouth once a day as directed Dose tika: 6 day taper. Take as directed 10/04 completed Not Available Not Available Not Available Zithromax 250 mg tablet Take 1 tablet by mouth once a day as directed Take two tablets now then one tablet daily for four days 10/09 completed Not Available Not Available Not Available Diflucan 150 mg tablet Take 1 tab by mouth now 08/21 completed Not Available Not Available Not Available omeprazole 40 mg capsule,del ayed release Take 1 tablet by mouth once a day 10/04 completed Not Available Not Available Not Available amoxicillin 500 mg tablet 1 CAP TID 07/14 completed Not Available Not Available Not Available lorazepam 0.5 mg tablet Take 1 tab by 1h prior to procedure . May repeat x 1 11/11 completed Not Available Not Available Not Available cephalexin 500 mg tablet 1 TAB four times daily 04/18 completed Not Available Not Available Not Available methylpredn isolone 4 mg tablets in a dose pack Take by mouth as directed following package instructi ons 11/21 completed Not Available Not Available Not Available clotrimazol e 1 % lotion cream as directed 04/18 completed Not Available Not Available Not Available amoxicillin 875 mg-potassiu m clavulanate 125 mg tablet Take 1 tab by mouth twice daily 06/06 completed Not Available Not Available Not Available Bactrim DS 800 mg-160 mg tablet Take 1 tab by mouth twice daily 11/27 completed Not Available Not Available Not Available Multivitami n-Minerals 1 qd 03/16 completed Not Available Not Available Not Available glucosamine -chondroiti n 167 mg-133 mg capsule Take 2 capsule by mouth once a day active Not Available Not Available No t Available Probiotic (B. coagulans) 10 billion cell capsule,del ayed release Take 1 capsule by mouth once a day active Not Available Not Available No t Available Vitals Date Recorded Body height Body mass index (BMI) Body weight Body temperature Oxygen saturation Oxygen saturation in Arterial blood by Pulse oximetry Heart rate Respiratory rate Systolic blood pressure Diastolic blood pressure Provider Name and Address Organization Details Last Updated DateTime 4 173.99 cm 27.5 kg/m2 98733.8 g 98.6 [degF] 99 % 99 % 68 /min 18 /min 120 mm[Hg] 60 mm[Hg] CHETNA SOSA LPN [facility] 14:09:37 Social History Question Answer Notes LastModified by Organizat ion Details LastModified Time Tobacco Smoking Status Never Smoker CHETNA SOSA LPN [facility], [facility] 01/15/2024 14:10:36 Would You Say That, In General, Your Health Is Good Information not available 01/15/2024 Women Aged 18-50 - Would You Like To Become In The Next Year? (Female Patients Only) No Information not available 01/15/2024 How Often Does Anyone, Including Family, Physically Hurt You? Never Information not available 01/15/2024 How Often Does Anyone, Including Family, Insult Or Talk Down To You? Never Information no t available 01/15/2024 How Often Does Anyone, Including Family, Threaten You With Harm? Never Information not available 01/15/2024 How Often Does Anyone, Including Family, Scream Or Curse At You? Never Information not available 01/15/2024 Within The Past 12 Months, You Worried That Your Food Would Run Out Before You Got Money To Buy More. Never True Information n ot available 01/15/2024 Within The Past 12 Months, The Food You Bought Just Didn't Last And You Didn't Have Money To Get More. Never True Information not available 01/15/2024 How Hard Is It For You To Pay For The Very Basics Like Food, Housing, Medical Care, And Heating? Would You Say It Is: Not Hard At All Information not available 01/15/2024 In The Past 12 Months, Has Lack Of Reliable Transportation Kept You From Medical Appointments, Meetings, Work Or From Getting Things Needed For Daily Living? No Information not available 01/15/2024 What Is Your Housing Situation Today? I Have Housing. Information not available 01/15/2024 How Often In The Past Year Have You Used Marijuana (including Smoking, Vaping, Dabbing, Or Edibles)? Monthly Or Less Information not available 01/15/2024 How Often In The Past Year Have You Used Prescription Medications That Were Not Prescribed To You? Never Information not available 01/15/2024 How Often In The Past Year Have You Taken Your Own Prescription Medication More Than The Way It Was Prescribed Or For Different Reasons Than Its Intended Purpose? Never Information not available 01/15/2024 How Often In The Past Year Have You Used Other Drugs (for Example, Heroin, Cocaine, Meth, Salvia, Inhalants)? Never Information not available 01/15/2024 Have You Ever Used IV Drugs? No Information not available 01/15/2024 Date Of Most Recent SBINS 01/15/2024 Information not available 01/15/2024 What Was The Date Of Your Most Recent Tobacco Screening? 01/15/2024 Information n ot available 01/15/2024 Sex: Female Functional Status None recorded. Mental Status None recorded. Family History Relationship Description Onset Age of this Age Resolved Age Notes Brother Family history of acute medical disorder deceasesd over t summer due to hodgkins lymphoma Mother Family history of acute medical disorder Alzheimers Mother Family history of diabetes mellitus type 1 Father Family history of alcoholism Father Family history of malignant neoplasm Father No family history of respiratory disease Notes:*Problem: No known fam milton history of breast cancer, colon cancer Medical History No medical history recorded. Gynecological HistoryNo gynecological history recorded. Obstetrics History GPAL:G 0 P 0 0 0 0 Immunizations Vaccine Type Date Status Provider Name and Address Organization Details Recorded Time Tdap 04/20/2020 completed Not Available [facility] 06:16[facility] Influenza, split virus, quadrivalent, PF 03/21/2022 completed Not Available [facility] 03/15/2023 06:16:35 Influenza, split virus, quadrivalent, PF 04/20/2020 completed Not Available [facility] 03/15/2023 06:16:35 COVID-19, mRNA, LNP-S, PF, 100 mcg/0.5mL dose or 50 mcg/0.25mL dose 08/18/2020 completed Not Available [facility] 03/15/20 06:16:35 COVID-19, mRNA, LNP-S, PF, 100 mcg/0.5mL dose or 50 mcg/0.25mL dose 09/15/2020 completed Not Available [facility] 03/15/20 06:16:36 COVID-19, mRNA, LNP-S, PF, 100 mcg/0.5mL dose or 50 mcg/0.25mL dose 04/11/2021 completed Not Available [facility] 03/15/20 06:16:36 COVID-19, mRNA, LNP-S, bivalent, PF, 30 mcg/0.3 mL dose 03/21/2022 completed Not Available [facility] 03/15/2023 06:16:36 influenza, unspecified formulation 04/22/2019 completed Not Available [facility] 03/15/2023 06:16:36 Influenza, split virus, quadrivalent, PF 02/22/2023 completed Not Available [facility] 05/17/2023 05:33:07 Past Encounters Encounter ID Performer Location Encounter Start Date Encounter Closed Date Diagnosis/Indication Diagnosis SNOMED-CT Code Diagnosis ICD10 Code [id number] YESSY SAAB PA-C [address] [address] 01/15/2024 14:00:41 01/15/2024 15:17:53 Adult health examination 091594563 Z00.00 Hyperlipid emia screening 452237211 Z13.220 Family his tory of diabetes mellitus 478888431 Z83.3 Hepatitis C screening 41 6877314 Z11.59 HIV screening 348038526 Z11.4 Cough 89264857 R05.9 Screening for malignant neoplasm of breast 726416566 Z12.31 Health Concerns Section Related Observation LastModified by Organization Detai ls LastModified Time None Recorded Concern Status LastModified by Organization Details LastModified Time None Recorded Payers Encounter Date Sequence Insurance Name Policy Number Policy Bernal Covered Member ID Bernal Member ID Guarantor Name 01/15/2024 1 *SELF PAY* Hilary Malagonchristopher Notes Date Note Type Note Provider Name and Address Organization Details Recorded Time 01/15/2024 text/html HPI Notes: Burt archibald presents for Annual Wellness Visit The patient is a 48-year-old female who reports the onset of cold symptoms on Saturday with a scratchy throat. The symptoms have progressed worse on Saturday and Saturday. The patient has a history of sinus infections during seasonal changes. She is currently taking DayQuil and NyQuil for symptom relief. No fever or trouble breathing reported. The patient has a family history of diabetes mellitus The patient has a past history of HPV 20 + years ago. last pap was in 2019 NILM neg HPV. she is due this year. The patient reports increased anxiety and stress due to her mother's health and a recent job change. - Last colonoscopy: pt declines colonoscopy and cologuard - Last mammogram: March last year - Last Pap smear: 2018, history of HPV - Immunizations: Tetanus up to date (2019) YESSY SAAB PA-C [address], [place], [address], [facility] 01/15/2024 18:20:07 OBGyn Episode No OBEpisode recorded.
--- OUTSIDE RECORDS SUMMARY | 2024-01-16 13:41 | XMS_ITS | Encounter Summary ---
Author Organization [facility] Address [address] [place] [address] Care Team Providers Care Workers' Compensation Claims Supervisor Name Role Phone Unknown, Provider Primary Care Provider Encounter Details Date Type Department Care Team (Late st Contact Info) Description 10/04/2020 Lab Requisition [facility] Pathology & Laboratory Medicine - [facility] [address] [place] [address] Outr Resulting Lab, Provider Social History Tobacco Use Types Packs/Day Years Used Date Smoking Tobacco: Never Assessed Sex and Gender Information Value Date Recorded Sex Assigned at Not on file Gender Identity Not on file Sexual Orientation Not on file documented as of this encounter Plan of Treatment Not on file documented as of this encounter Procedures Procedure Name Priority Date/Time Associated Diagnosis Comments ZZCOVID-19 TEST [facility] PCR Today 10/04/2020 9:30 EDT COVID-19 TESTING Routine 10/04/2020 9:30 EDT documented in this encounter Results * COVID-19 TEST [facility] PCR (10/04/2020 9:30 EDT) Swab ENTIRE NASOPHARYNX / Unknown 10/04/2020 9:30 EDT 10/04/2020 21:34 EDT Provider Outr Resulting Lab MICROBIOLOGY - GENERAL ORDERABLES [facility] [address] [place] [address] * COVID-19 TESTING (10/04/2020 9:30 EDT) COVID-19 rt-PCR Result Negative Negative 10/05/2020 13:06 EDT [facility] Comment: This test has not been FDA cleared or approved. This test has been authorized by FDA under an EUA for use by authorized laboratories. This test has been authorized only for detection of nucleic acid from 2019-nCoV, not for any other viruses or pathogens. This test is only authorized for the duration of the declaration that circumstances exist justifying the authorization of emergency use of in vitro diagnostic tests for detection and/or diagnosis of 2019-nCoV under section 564(b)(1) of Act, 21 U.S.C ?? 360bbb-3(b) (1), unless the authorization is terminated or revoked sooner. Negative results do not preclude 2019-nCoV infection and should not be used as the sole basis for treatment or other patient management decisions. Negative results must be combined with clinical observations, patient history, and epidemiological information. This test was developed and its performance characteristics determined by [facility]. It has not been cleared or approved by the US Food and Drug Administration. FDA does not require this test to go through premarket FDA review. This test is used for clinical purposes. It should not be regarded as investigational or for research. This laboratory is certified under the Clinical Laboratory Improvement Amendments (CLIA) as qualified to perform high complexity clinical laboratory testing. This test is based on the CDC COVID-19 Emergency Use Authorization (EUA) assay, with minor modification as defined by the FDA Performed on the [employer] 7 Flex RT-PCR System. Performing Lab [facility] 10/05/2020 13:06 EDT [facility] Swab 10/04/2020 9:30 EDT 10/04/2020 21:34 EDT Provider Outr Resulting Lab MICROBIOLOGY - GENERAL ORDERABLES [facility] [address] [place] [address] documented in this encounter Visit Diagnoses Not on filedocumented in this encounter Care Teams Workers' Compensation Claims Supervisor Relationship Specialty Start Date End Date Unknown, Provider, PCP - General 04/26/15 documented as of this encounter
--- OUTSIDE RECORDS SUMMARY | 2024-01-16 13:41 | XMS_ITS | Data Portability ---
Author Organization [facility] [place] [address] Care Team Providers Care Police Commissioner Name Role Phone CRSECENCIO MUNGUIA Dentist Assessment No assessment recorded. Plan of Treatment Reminders Order Date Submit Date Provider Last Modified By Organization Details Last Modified Time Details Appointments Nurse Visit 20 2023 08:00A M Not available Not available Not available Lab lipid panel, serum [address] [facility] (Registration ), [address] [place] [address] [place], [address], 01/15/2024 14:52:02 CMP, serum or plasma [address] [facility] (Registration ), [address] [place] [address] Dr [facility] [place], [address], 01/15/2024 14:52:02 influenza virus A + B + SARS-CoV- 2 (COVID19) Ag panel, rapid IA, upper respirato ry specimen [address] [facility] [place], [address] [facility], [facility] [address], [place], [address], 01/15/2024 15:21:00 HbA1c (hemoglob in A1c), blood [address] [facility] (Registration ), [address] [place] [address] [place], [address], 01/15/2024 14:52:02 hepatitis C virus Ab, serum 2023 024 [email or web address] [facility] (Registration ), [address] [place] [address] [place], [address], 01/15/2024 14:52:02 HIV (1+2) Ab screen, serum 2023 024 [email or web address] [facility] (Registration ), [address] [place] [address] [place], [address], 01/15/2024 14:52:01 Referral None recorded. Procedures None recorded. Surgeries None recorded. Imaging MAMMO, screening , bilateral - due in march 142023 024 [facility], [address] , [place], [address], 01/16/2024 08:01:05 Medication Orders None recorded. Patient TargetsNo targets recorded. Patient Instructions Encounter Date Encounter Id Patient Instructions Last Modified By Organization Details Last Modified Time 01/15/2024 [id number] Schedule appt here for {{fasting blood work (water or black coffee only for at least 8 hours)* bloodwork X-ray }} (no appointment needed), please allow up to 2 weeks to hear about results {{[facility] ([facility])* Roberta lei [facility] ([facility]) [facility] ([facility]) [facility] ([facility]) [facility] ([facility]) [facility] ([facility]) [facility]}} will contact you to schedule {{bone density [...] men Influenza A negati ve Not Available [facility] [address] [facility] [address], [place], [address], 01/15/2024 15:01:56 01/15/20 24 01/15/2024 influ maile virus A + B + SARS- CoV-2 (COVI D19) Ag panel , rapid IA, upper respi rator y speci men Influenza B negati ve Not Available [facility] [address] [facility] [address], [place], [address], 01/15/2024 15:01:56 01/15/20 24 01/15/2024 influ maile virus A + B + SARS- CoV-2 (COVI D19) Ag panel , rapid IA, upper respi rator y speci men SARS-COV-2 negati ve Not Available [facility] [address] [facility] [address], [place], [address], 01/15/2024 15:01:56 Result Notes None recorded. Problems [...] go she would want to go to [facility]. Patient wants to wait till March to have mammogra m as she has these done every 2 years. Up-to-da te on immuniza tions. Pap smear will be due next year. Discussi on about healthy lifestyl e choices. She is up-to-da te on blood work. Problem Code: Z00.00; Problem Code Type: ICD-10; Not Available [facility] 3 04:46:12 Hypertro phy of breast 052064263 Active 201511/22/19 22 - Comments only - Yessy GIBBS - /upper back pain - referral to [facility] plastic surgery for breast reductio n Problem Code: N62; Problem Code Type: ICD-10; Not Available [facility] 3 04:46:12 Acute sinusiti s 99508528 Completed 201607/10/2016 Problem Code: J01.90; Problem Code Type: ICD-10; Not Available [facility] 3 04:46:12 Acute pharyngi tis 287849433 Completed 201905/28/2019 Problem Code: J02.9; Problem Code Type: ICD-10; Not Available [facility] 3 04:46:12 Streptoc occal sore throat 35610087 Completed 201906/10/2019 05/27/19 20 - Comments only - Yessy GIBBS - - rx for augmenti n - salt water gargles - plenty of rest and fluids - f/u if not improvin g or worsenin g symptoms Problem Code: J02.0; Problem Code Type: ICD-10; Not Available [facility] 3 04:46:12 Right side sciatica 18856261064 9101 Completed 201901/30/2023 11/12/19 20 - Comments [...] M54.31; Problem Code Type: ICD-10; Not Available [facility] 3 04:46:12 Increase d frequenc y of urinatio n 640192051 Completed 201911/24/2019 Problem Code: R35.0; Problem Code Type: ICD-10; Not Available [facility] 3 04:46:12 Exposure to communic able disease Completed 201903/16/2020 Problem Code: Z20.828; Problem Code Type: ICD-10; Not Available [facility] 3 04:46:12 Screenin g for malignan t neoplasm of breast Active 2019 Problem Code: Z12.39; Problem Code Type: ICD-10; Not Available [facility] 3 04:46:12 Chronic sinusiti s 76373956 Completed 202010/25/2020 10/05/19 21 - Comments only - Marychuy Keller PLANT RELIABILITY ENGINEER - Covid test obtained today. I think she has a sinus infectio n but better to be on the safe side. Rx for azithrom ycin and a Medrol Dosepak. She is planning on resting today and tomorrow . Follow-u p if not mckayvin g. Problem Code: J32.9; Problem Code Type: ICD-10; Not Available [facility] 3 04:46:13 Acute pharyngi tis 535658916 Completed 202211/05/2022 11/03/19 23 - Comments only - Johnnie Peck MD - Almost certainl y viral illness, same as her daughter s. Symptoma tic measures . SS negative . Problem Code: J02.9; Problem Code Type: ICD-10; Not Available [facility] 3 04:46:13 Neoplasm of uncertai n behavior of skin 17567617 Completed 202211/29/2022 11/23/19 23 - Comments only [...] D48.5; Problem Code Type: ICD-10; Not Available [facility] 3 04:46:13 Hypertro phic conditio n of skin 47144532 Active 202211/23/19 23 - Comments only - [...] L91.8; Problem Code Type: ICD-10; Not Available [facility] 3 04:46:13 Pain in thoracic spine 791386268 Completed 201508/14/2018 Problem Code: M54.9; Problem Code Type: ICD-10; Not Available [facility] 3 04:46:15 Hyperlip idemia screenin g Completed 201911/21/2021 Problem Code: Z13.220; Problem Code Type: ICD-10; Not Available [facility] 3 04:46:15 Neck pain 60107302 Completed 201508/14/2018 Problem Code: M54.2; Problem Code Type: ICD-10; Not Available [facility] 3 04:46:15 Snoring 70711680 Completed 201911/22/2022 Problem Code: R06.83; Problem Code Type: ICD-10; Not Available [facility] 3 04:46:16 Pain in thoracic spine 106819560 Completed 202111/22/2022 Problem Code: M54.9; Problem Code Type: ICD-10; Not Available [facility] 3 04:46:17 Urinary tract infectio us disease 17435507 Completed 201904/20/2020 Problem Code: N39.0; Problem Code Type: ICD-10; Not Available [facility] 3 04:46:17 Abnormal weight gain 201690846 Completed 201911/21/2021 Problem Code: R63.5; Problem Code Type: ICD-10; Not Available [facility] 3 04:46:17 Pain of left shoulder joint 42009655652 782774 Completed 201911/21/2021 Problem Code: M25.512; Problem Code Type: ICD-10; Not Available [facility] 3 04:46:17 Family history of diabetes mellitus 538690155 Active [address] PA-[address] [facility] [address], [place], [address] , [facility] 4 14:50:57 Problem Notes None recorded. Medical [...] Updated DateTime 4 173.99 cm 27.5 kg/m2 06367.8 g 98.6 [degF] 99 % 99 % 68 /min 18 /min 120 mm[Hg] 60 mm[Hg] CHETNA SOSA LPN [facility] 4 14:09:37 Social History Question Answer Notes LastModified by Organizat ion Details LastModified Time Tobacco Smoking Status Never Smoker CHETNA SOSA LPN [facility], [facility] 01/15/2024 14:10:36 Would You Say [...] Recorded Time Tdap 04/20/2020 completed Not Available [facility] 06:16:35 Influenza, split virus, quadrivalent, PF 03/21/2022 completed Not Available [facility] 03/15/2023 06:16:35 Influenza, split virus, quadrivalent, PF 04/20/2020 completed Not Available [facility] 03/15/2023 06:16:35 COVID-19, mRNA, LNP-S, PF, 100 mcg/0.5mL dose or 50 mcg/0.25mL dose 08/18/2020 completed Not Available [facility] 03/15/20 06:16:35 COVID-19, mRNA, LNP-S, PF, 100 mcg/0.5mL dose or 50 mcg/0.25mL dose 09/15/2020 completed Not Available [facility] 03/15/20 06:16:36 COVID-19, mRNA, LNP-S, PF, 100 mcg/0.5mL dose or 50 mcg/0.25mL dose 04/11/2021 completed Not Available [facility] 03/15/20 06:16:36 COVID-19, mRNA, LNP-S, bivalent, PF, 30 mcg/0.3 mL dose 03/21/2022 completed Not Available [facility] 03/15/2023 06:16:36 influenza, unspecified formulation 04/22/2019 completed Not Available [facility] 03/15/2023 06:16:36 Influenza, split virus, quadrivalent, PF 02/22/2023 completed Not Available [facility] 05/17/2023 05:33:07 Past Encounters Encounter ID Performer Location Encounter Start Date Encounter Closed Date Diagnosis/Indication Diagnosis SNOMED-CT Code Diagnosis ICD10 Code [id number] YESSY SAAB PA-C [address] [address] 01/15/2024 14:00:41 01/15/2024 15:17:53 Adult health examination 244431739 Z00.00 Hyperlipid emia screening 680718859 Z13.220 Family his tory of diabetes mellitus 560134264 Z83.3 Hepatitis C screening 41 8021746 Z11.59 HIV screening 822142791 Z11.4 Cough 51525011 R05.9 Screening for malignant neoplasm of breast 217102792 Z12.31 Health Concerns Section Related Observation LastModified by Organization Detai ls LastModified Time None Recorded Concern Status LastModified by Organization Details LastModified Time None Recorded Advance Directives Directive None Recorded Payers Encounter Date Sequence Insurance Name Policy Number Policy Bernal Covered Member ID Bernal Member ID Guarantor Name 01/15/2024 1 *SELF PAY* Hilary Chen Notes Date Note Type Note Provider Name [...] - Immunizations: Tetanus up to date (2019) [address], [place], [address], [facility] 01/15/2024 18:20:07 OBGyn Episode No OBEpisode recorded.
--- OUTSIDE RECORDS SUMMARY | 2024-01-16 13:41 | XMS_ITS | Encounter Summary ---
Author Organization [facility] Address [address] [place] [address] Care Team Providers Care Ob Tech Name Role Phone Unknown, Provider Primary Care Provider Encounter Details Date Type Department Care Team (Late st Contact Info) Description 11/23/2022 Lab Requisition [facility] Pathology & Laboratory Medicine - [facility] [address] [place] [address] Yessy Mondragon PA [address] [place] [address] Neoplasm of uncertain behavior of skin Social History Tobacco Use Types Packs/Day Years Used Date Smoking Tobacco: Never Assessed Sex and Gender Information Value Date Recorded Sex Assigned at Not on file Gender Identity Not on file Sexual Orientation Not on file documented as of this encounter Plan of Treatment Not on file documented as of this encounter Procedures Procedure Name Priority Date/Time Associated Diagnosis Comments SURGICAL PATHOLOGY Today 11/22/2022 10 :00 EDT Neoplasm of uncertain behavior of skin documented in this encounter Results * SURGICAL PATHOLOGY (11/22/2022 10:00 EDT) Note to Patient The following pathology results have been interpreted by your pathologist and may be available to you before your health provider has had the opportunity to review them. Please allow time for your provider to receive these results and explore management options, if applicable. 11/28/2022 13:46 EDT [facility] Final Diagnosis A. SKIN OF MID BACK, LEFT LATERAL, SHAVE BIOPSY: - Seborrheic keratosis, pigmented. 11/28/2022 13:46 EDT [facility] Attestation By the signature below, the attending physician certifies that they have 1) personally conducted a gross and/or microscopic examination of the described specimen(s), and/or personally interpreted the results of laboratory testing of the described specimen(s), and 2) personally rendered or confirmed the above diagnosis. 11/28/2022 13:46 [facility] at 1346 Clinical History Clinical diagnosis code: D48.5 11/28/2022 13:46 EDT [facility] Gross Description A. Received in formalin labelled with proper patient identification (initials M, R) and L mid back is a 0.9 x 0.8 by up to 0.2 cm mottled medium to dark brown nodular skin lesion. The margin is inked. Trisected and entirely submitted in A1. [address]I [address](ASCP) 11/23/2022 12:04 11/28/2022 13:46 T [facility] Performing Lab [facility] 11/28/2022 13:46 T [facility] Scanned Images 11/28/2022 13:46 T [facility] Tissue TISSUE SPECIMEN FROM SKIN / Unknown 11/22/2022 10:00 EDT 11/23/2022 8:30 EDT Yessy GIBBS PATHOLOGY ORDERA BLES [facility] [address] [place] [address] documented in this encounter Visit Diagnoses Diagnosis Neoplasm of uncertain behavior of skin documented in this encounter Care Teams Ob Tech Relationship Specialty Start Date End Date Unknown, Provider, PCP - General 04/26/15 documented as of this encounter
--- OUTSIDE RECORDS SUMMARY | 2024-01-16 13:41 | XMS_ITS | Referral Summary ---
Author Organization [facility] Address [address] [place] [address] Care Team Providers Care Field Counsel Name Role Phone Unknown, Provider Primary Care Provider Social History Tobacco Use Types Packs/Day Years Used Date Smoking Tobacco: Never Assessed Sex and Gender Information Value Date Recorded Sex Assigned at Not on file Gender Identity Not on file Sexual Orientation Not on file Plan of Treatment Not on file Care Teams Field Counsel Relationship Specialty Start Date End Date Unknown, Provider, PCP - General 04/26/15
--- OUTSIDE RECORDS SUMMARY | 2024-01-16 13:41 | XMS_ITS | Encounter Summary ---
Author Organization [facility] Address [address] [place] [address] Care Team Providers Care Assurance Manager Insurance Name Role Phone Unknown, Provider Primary Care Provider Encounter Details Date Type Department Care Team (Late st Contact Info) Description 09/16/2018 Results Only [facility] [phone] Jenn Dan, [address] [place] [id number] Social History Tobacco Use Types Packs/Day Years [...] Diagnosis Comments PAP TEST- RESULT ONLY Routine 09/16/2018 0:00 EDT documented in this encounter Results * PAP TEST- RESULT ONLY (09/16/2018 0:00 EDT) Pathology Report: CYTOPATHOLOGY REPORT Reports generated via electronic interface contain original data; however they are lacking the format of the original report. Caution should be taken when reading/interpreti ng unformatted reports. Name: ? DWIGHTCHAITANYA VICK ? Accession #: ? [id number] ? : ? 1975 (Age: 42) ??F ?Collect Date: ? 09/16/2018 ? Location: ? [facility] ? Receive Date: ? 09/17/2018 ? Provider: JENN DAN CORE SHAPER TOP Copy to: CLAIRE LOMELI MD ? Final Report SPECIMEN ADEQUACY ? Satisfactory for Evaluation - transformation zone component present GENERAL CATEGORIZATION ? Negative for Intraepithelial Lesion or Malignancy INTERPRETATION ? Reactive cellular changes associated with inflammation present (includes repair). Last Menstrual Period: 08/24/2018 Specimen/Source: ??Pap Test, Cervix, ThinPrep Imaging System with manual evaluation Document reviewed and electronically signed by: ? JOSE C HARMON MD ? Report ??Date: 09/19/2018 12:40 HPV with Pap Test ? Date Ordered: ? 09/19/2018 ? Status: ?? Signed Out ?Date Complete: ? 09/22/2018 ? By: ??System Interface ? Date Reported: ? 09/22/2018 ? Interpretation RESULT: Negative for HPV. No E6 or E7 mRNA is detected from HPV types 16,18,31,33,35, 39,45,51,52,56,58, 59,66, and 68 by informatics nurse specialist mediated amplification. Comments Document reviewed and electronically signed by: ? System Interface ? Report date: 09/22/2018 By the signature above, the attending physician certifies that he/she has personally conducted a gross and/or microscopic examination of the described specimens and rendered or confirmed the above diagnosis. End of Report [facility] 09/16/2018 09/17/2018 Jenn Dan CORE SHAPER TOP PATHOLOGY ORDERABLES [facility] [address] [place] [address] documented in this encounter Visit Diagnoses Not on filedocumented in this encounter Care Teams Assurance Manager Insurance Relationship Specialty Start Date End Date Unknown, Provider, PCP - General 04/26/15 documented as of this encounter
--- OUTSIDE RECORDS SUMMARY | 2024-01-16 13:41 | XMS_ITS | Clinical Summary ---
Author Organization [facility] Address [address] [place] [address] Care Team Providers Care Youth Coordinator Name Role Phone Unknown, Provider Primary Care Provider Social History Tobacco Use Types Packs/Day Years Used Date Smoking Tobacco: Never Assessed Sex and Gender Information Value Date Recorded Sex Assigned at Not on file Gender Identity Not on file Sexual Orientation Not on file Plan of Treatment Health Maintenance Due Date Last Done Comments Hepatitis C Screen 1975 Hepatitis B Vaccine (1 of 3 - 19+ 3-dose series) 11/13 COVID-19 Vaccine (2022- season) 2024 Care Teams Youth Coordinator Relationship Specialty Start Date End Date Unknown, MD Pablo PCP - General 04/26/15
--- OUTSIDE RECORDS SUMMARY | 2024-01-16 13:41 | XMS_ITS | Encounter Summary ---
[place] [address] Care Team Providers Care Evp Global Product Leadership Name Role Phone Yessy Mondragon Primary Care Provider [phone] Encounter Details Date Type Department Care Team (Latest Contact Info) Description 03/20/2022 10:00 AM EST Clinical [place] [id number] Surgery follow-up Social History Tobacco Use Types Packs/Day Years Used Date Smoking Tobacco: Never Smokeless Tobacco: Never Alcohol Use Standard Drinks/Week Comments Yes 3 (1 standard drink = 0.6 oz pur e alcohol) not in Sex and Gender Information Value Date Recorded Sex Assigned at Not on file Gender Identity Not on file Sexual Orientation Not on file documented as of this encounter Patient Instructions * Patient Instructions* Adina Tafoya RN - 03/20/2022 10:00 AM EST Signs of Infection : A temperature over [...] extra strength tylenol, or NSAIDS For any of these symptoms please call our nurse's line at [phone] M - F 8 - 5 For after hours, and on weekends; Call [phone] and ask for our plastic surgeon composition board press operator Activity restrictions until 6 weeks post-op: do not lift/push/pull > 5 pounds, no running or bouncing, no push-ups or plank position. Wear compressive bra around the clock until six weeks after surgery. Six weeks after surgery all restrictions lifted except no under wire bra. Do not wear an under wirebra until you gain normal sensation under your breast (expect 3-6 months) -SCAR MASSAGE TECHNIQUE: to begin 4-6 weeks following surgery What is a scar? When an injury occurs, the body immediately begins to repair itself & the area becomes swollen & sore. Eventually small collagen fibers form, becoming a solid tissue that results in a scar. This scar will continue to change in appearance for 1-2 years. Ideally, a scar is smooth & flat, blending in with the surrounding skin. However, some scars may become highly visible & unattractive due to factors such as your age, scar location & size, nutrition, genetics, or infection. A hypertrophic scar occurs when there is an excess production of collagen tissue that is elevated but remains within the wound boundaries. The scar is tense, red, & can be associated with itching & tenderness. A hypertrophic scar can be ordinary (usually stabilizes in 3 months & may even get smaller and smoother) or keloid. The keloid scar invades nearby tissue that was not part of the original wound, tends to enlarge even after 6 months & does not get softer. Will scar massage make my scars disappear? Nothing can make scars disappear. However, massaging the scar assists the body in breaking down thescar tissue to give it a flatter, softer, appearance. Massage also mobilizes the scar, preventing it from adhering to underlying tissue, tendons, & nerves. You can make the greatest difference in the appearance of the scar if you massage it in the first 3months. What should I use on my scars? You will hear many recommendations. This clinic finds that it is the massage itself that reduces the scar & not necessarily the choice of ointments or creams. We do discourage the use of Vitamin E oil, however, due to studies that have reported scar inflammation & deterioration. How do I massage my scars? Apply the lotion or cream into the scar 3-4 times a day for 8 weeks on new scars, and 3-4 times perday for 3 to 6 months on existing scars. Using your finger, apply pressure to the scar in a crosswise & circular direction, bearing down as hard as tolerated. Remember to protect your scar from the sun, especially in the first 6-12 months, by using a moisturizer with sunblock and wearing a physical barrier (ie: a hat) when possible documented in this encounter Progress Notes * Adina Tafoya RN - 03/20/2022 10:00 AM EST Plastic Surgery Post Op Note Prabha Rolon Midthun returned to our office today for post surgical follow-up Date of surgery: 03/13/22 Procedure(s): Bilateral breast reduction (Miguel) POD # 7 Subjective : Pain: Prabha reports mild discomfort. She reports that she her is using extra strength tylenol and motrin with good effect. She already feels substantial relief of her back pain and is happy with her results. Objective : General: Alert, comfortable, conversant, ambulating Breasts: Swelling: mild bilaterally Bruising: mild bilaterally Good symmetry and good perfusion of NAC's bilaterally.Areola incisions are approximated with no drainage. Nipples have normal projection. Incisions are well approximated. Surgical bra fitted, and in use. She was provided with a copy of her path report indicating benign breast tissue. Assessment: No evidence of delayed healing,erythema, or fluid collection. Incisions CDI Plan: Instructed in care of incision lines,and activity restrictions,provided in AVS. We reviewed signs and symptoms of infection, spitting sutures, parameters for normal post op swelling and bruising as stated in our post op brochure. We reviewed communication through [facility] portal, and correct phone numbers to call for concerns on AVS, Begin scar massage at 4-6 weeks post op- instructions provided in AVS Supplies: a stefanie surgical bra was provided Follow up: [address] Rivera or sooner if needed. rPabha expressed understanding of her instructions, and is happy with today's visit and plan of care. documented in this encounter Plan of Treatment Not on file documented as of this encounter Visit Diagnoses Diagnosis Surgery follow-up Follow-up examination, following unspecified surgery documented in this encounter Care Teams [employer] Leadership Relationship Specialty Start Date End Date Yessy Mondragon PA [address] [address] PCP - General Family Medicine 01/03/22 documented as of this encounter
--- OUTSIDE RECORDS SUMMARY | 2024-01-16 13:42 | XMS_ITS | Encounter Summary ---
Author Organization [facility] [place] [address] Care Team Providers Care Oil Bay Technician Name Role Phone Johnnie Peck MD Primary Care Provider [phone] Reason for Visit * Reason Comments Ultrasound Encounter Details Date Type Department Care Team (Late st Contact Info) Description 11/01/2014 9:45 AM EDT Office Visit Obstetrics [place] [address] Barb Mary MD [facility] [address] [place] [address] Choroid plexus cysts, , affecting care of mother, antepartum, fetus 1; Placenta previa antepartum in second trimester Social History Tobacco Use Types Packs/Day Years Used Date Smoking Tobacco: Never Alcohol Use Standard Drinks/Week Comments Yes 3 (1 standard drink = 0.6 oz pur e alcohol) not in Comments Yes Sex and Gender Information Value Date Recorded Sex Assigned at Not on file Gender Identity Not on file Sexual Orientation Not on file documented as of this encounter Last Filed Vital Signs Vital Sign Reading Time Taken Comments Blood Pressure 130/72 11/01/2014 9:01 AM EDT Pulse - - Temperature - - Respiratory Rate - - Oxygen Saturation - - Inhaled Oxygen Concentration - - Weight 73.1 kg (161 lb 3.2 oz) 11/01/2014 9:01 A M EDT Height - - Body Mass Index - - documented in this encounter Progress Notes * Pschirrer, E Prabha, MD - 11/01/2014 10:19 AM EDT Diagnosis/Maternal Medicine Consult Note Prabha Chen is a 38 y.o. year old female who is at 20w5d gestation. She is seen in consultation at the request of Nidia Ibrahim CNM for evaluation of anatomy due to choroid plexus cysts. She was seen today for maternal- medicine consultation, ultrasound evaluation andgenetic counseling with Francesca Gonzalez MSc. Aneuploidy screening was previously declined. Review of Systems Constitutional:feels well Movement: normal Contractions: none Leaking: None Bleeding: None There are no active problems to display for this patient. No past medical history on file. No past surgical history on file. Family History Problem Relation Age of Onset ??? Loss Mother 2 early sabs unknown etiology ??? Alcohol Abuse Father from liver ca and hep B @ 64y ??? Congenital Anomalies Cousin webbed toes ??? Seizure Disorder Father of Baby 40 Jadiel onset etiology unknown ??? Seizure Disorder Father of Baby Relative 12 Jadiel's mom etiology unknown Social History Occupational History ??? Not on file. Social History Main Topics ??? Smoking status: Never Smoker ??? Smokeless tobacco: Not on file ??? Alcohol Use: 1.8 oz/week 3 Glasses of wine per week Comment: not in ??? Drug Use: No ??? Sexual Activity: Partners: Male OB History Para Term AB TAB SAB Ectopic Multiple Living 3 1 1 1 1 # Outc Date GA Lbr Rayray/2nd Wgt Sex Del Anes PTL Lv 1 TAB 1998 6w0d 2 Term 08/2012 40w0d 3.459 kg (7 lb 10 oz) M Vag-Spont None N Y 3 Current Current Outpatient Prescriptions Medication Sig Dispense Refill ??? [id number]-[id number] Tablet Take by mouth. No current facility-administered medications for this visit. No Known Allergies Ultrasound Date: 11/01/2014 Amniotic fluid volume normal Presentation cephalic Placenta posterior, previa Growth appropriate for gestational age anatomy is remarkable for a unilateral choroid plexus cyst Physical Exam BP 130/72 Wt 73.12 kg (161 lb 3.2 oz) LMP 06/08/2014 General: alert, well appearing, in no apparent distress, oriented to person, place and time HEENT: normocephalic, atraumatic Abdomen: Soft, nontender Neurologic:alert, oriented, normal speech, no focal findings or movement disorder noted Psychiatric: Affect is Appropriate. Assessment and Recommendations: 38 y.o. year old female at 20w5d weeks gestation, referred for counseling regarding choroidplexus cysts. Ms. Chen was counseled regarding the implications of choroid plexus cysts. When seen in isolation, they are probably a developmental phenomenon and do not indicate an increased risk for trisomy 18. However, when combined with other malformations, they may be an indicator of trisomy 18. In addition, they were informed that choroid plexus cysts, when seen in isolation and not associated with other defects, invariably resolve. They are not associated with any risks of mental retardation or developmental delays. The risks of amniocentesis were reviewed. The patient definitively declined amniocentesis, as well as cell free DNA screening. Placenta Previa: I explained the implications of a placenta previa including hemorrhage, long hospitalization, premature , risks of section, and possibility of hysterectomy. Inthe event of persistent previa, delivery generally is at 37 weeks, prior to the onset of labor. I recommend follow-up ultrasound in the third trimester for evaluation of placental location. I appreciate the opportunity to be involved in this patients care, and am available if further questions should arise. Barb Mary MD 11/01/2014 Cc: Nidia Ibrahim CNM [address] [place] [address] , with copy of ultrasound report documented in this encounter Plan of Treatment Not on file documented as of this encounter Visit Diagnoses Diagnosis Choroid plexus cysts, , affecting care of mother, antepartum, fetus 1 Placenta previa antepartum in second trimester documented in this encounter Care Teams Oil [place] Technician Relationship Specialty Start Date End Date Johnnie Peck MD [address] [place] [address] PCP - General 10/29/14 01/02/22 documented as of this encounter
--- OUTSIDE RECORDS SUMMARY | 2024-01-16 13:42 | XMS_ITS | Encounter Summary ---
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 Encounter Details Date Type Department Care Team (Late st Contact Info) Description 11/01/2014 8:45 AM EDT Office Visit Obstetrics [place] [address] Francesca Francois, [facility] DR OBSTETRICS & [place] [address] Encounter for genetic counseling; Choroid plexus cysts, , affecting care of mother, antepartum, fetus 1 Social History Tobacco Use Types Packs/Day Years Used Date Smoking Tobacco: Never Alcohol Use Standard Drinks/Week Comments Yes 3 (1 standard drink = 0.6 oz pur e alcohol) not in Comments Yes Sex and Gender Information Value Date Recorded Sex Assigned at Not on file Gender Identity Not on file Sexual Orientation Not on file documented as of this encounter Progress Notes * Francesca Francois, MS - 11/01/2014 9:05 AM EDT Genetic Counseling Note Prabha Chen was referred to the Diagnosis Program by Nidia Ibrahim CNM. I met with Prabha for a 40 minute genetic counseling visit. She was accompanied to the visit by her Jadiel. Chief Complaint Patient presents with ??? 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 Family History Problem (# of Occurrences) Relation (Name,Age of Onset) Alcohol Abuse (1) Father: from liver ca and hep B @ 64y Congenital Anomalies (1) Cousin: webbed toes Loss (1) Mother: 2 early sabs unknown etiology Seizure Disorder (2) Father of Baby (40): Jadile onset etiology unknown, Father of Baby Relative (12): Jadiel's mom etiology unknown The reported family history was otherwise unremarkable for intellectual disability, congenital anomalies, recurrent loss, or known genetic conditions. A pedigree was obtained and will be scanned into Prabha's electronic medical record. Prabha is of [place] ancestry. Jadiel is of [place] [facility], [place] ancestry. Consanguinity is denied. Obstetric History T1 TAB1 SAB0 E0 M0 L0 # Outcome Date GA Lbr Rayray/2nd Weight Sex Delivery Anes PTL Lv 3 Current 2 Term 08/20/12 40w0d 3.459 kg (7 lb 10 oz) M Vag-Spont None N Y 1 TAB 1998 6w0d Patient's last menstrual period was 06/08/2014. Estimated Date of Delivery: 03/16/15 based on LMP Screening Results Test Result ??? Aneuploidy screen Declined locally ??? Cystic fibrosis carrier screen Not discussed today ??? Thalassemia screen MCV within normal limits (90.8 fL) Assessment 38 y.o. female currently at 20w5d gestation. Discussion CPCs are found in up to 2% of euploid second-trimester fetuses. They are seen in 30% to 50% of fetuses with trisomy 18. Most fetuses with trisomy 18 have other sonographic findings suggesting aneuploidy. Isolated CPCs have not been associated with any significant neurocognitive delays. CPCs generally resolve by 28 weeks gestation. However, resolution of CPCs does not necessarily reflect a normal karyotype. Screening: We reviewed the association of maternal age and chromosome aneuploidy. We discussed the screening and diagnostic testing options that are available. We reviewed each of their risks, benefits, and limitations. After our discussion, Jocelyn opted just for an 18-20 week morphology ultrasound. Seizures can occur in isolation, as part of a genetic syndrome, or as the result of an environmental insult. Jadiel and his mom's seizures are reportedly isolated. For idiopathic seizures, the recurrence risk for a sibling is 2-6%, and for a child is approximately 4%. If a parent and child have isolated seizures, the risk to future children is approximately 10%. We recommended that the couple share this history with their venetian blind installer. Plan Following our visit, Prabha Gonzales Gustavo had a morphology ultrasound and maternal- medicine consultation with Dr. Margaret Mary. Please refer to her note for further details and recommendations. documented in this encounter Plan of Treatment Not on file documented as of this encounter Visit Diagnoses Diagnosis Encounter for genetic counseling Genetic counseling Choroid plexus cysts, , affecting care of mother, antepartum, fetus 1 documented in this encounter Care Teams Cook Box Filler Relationship Specialty Start Date End Date Johnnie Peck MD [address] [address] PCP - General 10/29/14 01/02/22 documented as of this encounter
--- OUTSIDE RECORDS SUMMARY | 2024-01-16 13:42 | XMS_ITS | Encounter Summary ---
Author Organization [facility] [place] [address] Care Team Providers Care Machine Pack Assembler Name Role Phone Yessy Mondragon Primary Care Provider [phone] Reason for Visit * Consultation (Routine) - Closed Specialty Diagnoses / Procedures Referred By Maren granger Referred To Contact Plastic Surgery Diagnoses Macromastia Upper back pain Yessy Mondragon PA [address] [place] [address] [facility] Plastic Surg [address] [address] Referral ID Status Reason Start Date Expiration Date V isits Requested Visits Authorized [id number] Closed Consult, Test & Treat 01/03/2022 01/03/2023 6 6 Encounter Details Date Type Department Care Team (Late st Contact Info) Description 01/25/2022 10:00 AM EDT Office [place] [address] Karl Rivera MD [facility] [place] [address] Macromastia Social History Tobacco Use Types Packs/Day Years [...] Pressure - - Pulse - - Temperature - - Respiratory Rate - - Oxygen Saturation - - Inhaled Oxygen Concentration - - Weight 80.3 kg (177 lb) 01/25/2022 10:15 AM EDT Height 175.3 cm (5' 9) 01/25/2022 10:15 AM EDT Body Mass Index 26.14 01/25/2022 10:15 AM EDT documented in this encounter Patient Instructions * Patient Instructions* Agata-Do Gomes, RMA - 01/25/2022 10:00 AM EDT Preoperative Instructions You have been scheduled to have plastic surgery. The instructions below are specific to your procedure. If you are a smoker, we ask that you stop at least 2 months prior to your surgical date and remain nicotine free for at least a month after surgery. Smoking can impair healing and increase your chance of infection. If you are 40 years old or older, please remember to have a mammogram with in one year prior to your upcoming breast reduction surgery as we advise not having one for at least six months after surgery. Two Weeks prior to Surgery Stop Vitamin E, Garlic supplements, Ginseng, Fish Oil tablets, Ginkgo and Jasmyn's Wort and any other herbals. You may resume taking 48 hours after surgery. YOU DO NOT NEED TO STOP any aspirin or ibuprofen products before your surgery. If you need medication for pain, you may take Tylenol or extra strength Tylenol during this two week period. Medication Specific Instructions One Week prior to Surgery Please call if you feel ill, have cold or fever, have a rash or breaks in the skin near your surgical site. Stay hydrated. Avoid alcohol and recreational drugs Three Days before Surgery Do not shave near your surgical site One Day before Surgery Breast Surgery - Wash your chest and underarms for several minutes the night before and the morningof surgery using an antibacterial soap (Dial or Lever 2000) or Hibiclens wash. The Same Day Surgery Team will call you the business day before your surgery to give you instructions specific to your procedure and your surgical time. Generally, you will be asked not to eat any solids after midnight. You are allowed clear liquids (water, raul dona, apple juice, black coffee andplain tea) until 2 hours prior to your surgery. Day of Surgery A rolloff driver is required at time of discharge. If you are a Same Day procedure and do not have a driveryour surgery will be canceled. DO NOT wear any jewelry, makeup or artificial nails the day of surgery. DO NOT apply any lotions, powders or deodorants on or near the surgical site the day of surgery. Do wear comfortable, loose fitting clothes. Anesthesia will meet with you the morning of surgery. They will perform an assessment and review your history with you. Contact Information: During regular office hours (Saturday- Saturday, non-holiday 8:00 am- 5:00 pm) For an appointment or insurance questions For questions pertaining to your surgical date [phone] For nursing related questions [phone] On weekends, holidays or after office hours: Call and ask the marine railway operator to page the Plastic Surgery Resident personal financial counselor. documented in this encounter Progress Notes * Karl Rivera MD - 01/25/2022 10:00 AM EDT Plastic Surgery Consultation Note Provider: Karl Rivera M.D. Reason for office visit: Symptomatic macromastia HPI: Prabha Chen is a 46 y.o. female who presents today for evaluation of symptomatic macromastia. Has been thinking about proceeding with BBR since her 20's. He large breasts causes her to have significant neck, back,shoulder pain and shoulder grooving. Shehas been working with a chiropractor as well as a physical therapist without success in treating her aliments. Her current bra size is a 36 G and would like to achieve a small C. She is 5'9 and weights 170 Ibs she has 10 more pounds to loose before achieving her goal weight. She has had several family members that he have a breast reduction who were happy with the results. 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 She has had a recent mammogram back in October of this year with normal results. No family h/o breast cancer. She has completed a breast specific questionnaire: Pertinent findings to emphasize are: No flowsheet data found. Breast Q Reduction PreOp 01/25/2022 Satisfaction with Breast 11 Psychosocial Wellbeing 14 Sexual well-being 18 Physical Well-being 47 How your breasts look in clothes? Very dissatisfied How your breast size matches the rest of your body? Very dissatisfied The size of your breasts? Very dissatisfied The shape of your breasts when you are wearing a bra? Somewhat dissatisfied How equal in size your breasts are to each other? Very dissatisfied How comfortably your bras fit? Very dissatisfied The shape of your breasts when you are not wearing a bra? Very dissatisfied How you look in the mirror clothed? Very dissatisfied How your breasts sit/hang on your chest? Very dissatisfied How normal your breasts look? Very dissatisfied How you look in the mirror unclothed? Very dissatisfied Confident in a social setting? None of the time Of equal worth to other women? None of the time Good about yourself? None of the time Self-assured? None of the time Confident in your clothes? None of the time Accepting of your body? None of the time That your appearance matches who you are inside? None of the time Confident about your body? None of the time Attractive? A little of the time Comfortable/at ease during sexual activities? A little of the time Confident sexually? None of the time Satisfied with your sex-life? None of the time Sexually attractive in your clothes? None of the time Sexy when unclothed? None of the time Headaches? Some of the time Pain in your breast area? Some of the time Lack of energy? Some of the time Difficulty doing vigorous physical activities (e.g. running or exercising)? All of the time Feeling physically unbalanced? Some of the time Shoulder pain? All of the time Difficulty sleeping because of discomfort in your breast area? Some of the time Neck pain? All of the time Painful gouges or grooves in your shoulders from your bra straps? All of the time Feeling physically uncomfortable? All of the time Rashes under your breasts? Some of the time Back pain? Some of the time Arm pain? Some of the time Pain, numbness or tingling in your hands because of your breast size? Some of the time Conservative Therapy Treatments: [facility] PLASTICS CONSERVATIVE THERAPY TREATMENTS 01/25/2022 Physical therapy was effective at relieving my symptoms. No Relief How many months did you try this treatment? More than 6 months Use of custom support bras relieved my symptoms. No Relief How many months did you try this treatment? More than 6 months Treatment by a chiropractor relieved my symptoms. Some Relief How many months did you try this treatment? More than 6 months Weight loss relieved my symptoms. No Relief How many months did you try this treatment? More than 6 months Non-narcotic medications (such as Tylenol, Aspirin, Ibuprofen, Aleve, etc) have relieved my symptoms. No Relief How many months did you try this treatment? More than 6 months Narcotic pain relievers (such as Tylenol #3, Percocet, etc) have relieved my symptoms. Never Tried Over the counter or prescription medication has relieved the rashes under my breasts. Never Tried No past medical history on file. No past surgical history on file. Family History Problem Relation Age of Onset ??? Loss Mother 2 early sabs unknown etiology ??? Alcohol Use Disorder Father from liver ca and hep B @ 64y ??? Congenital Anomalies Cousin webbed toes ??? Seizure Disorder Father of Baby 40 Jadiel onset etiology unknown ??? Seizure Disorder Father of Baby Relative 12 Jadiel's mom etiology unknown Examination: BMI: Ht 175.3 cm (5' 9) Wt 80.3 kg (177 lb) BMI 26.14 kg/m?? BSA: Body surface area is 1.98 meters squared. General: On my examination today, the patient appears to be in good health. Her emotional outlook is positive and she asked appropriate questions throughout the visit. Breasts: Bra size: 36G Goal cup size: low C Left breast is larger then right. Breast Measurements Right Left Ptosis Grade 1 Grade 1 Breast Vol (estimate in cc) Resection (estimate in gms) 800-900 800-900 Impression: Symptomatic bilateral breast hypertrophy. Bilateral breast reduction is indicated for relief of her breast-related symptoms. She watched the MART[facility]NE[facility] video on breast reduction, and was provided with an [facility]PS brochure and informed consent on breast reduction. It reviews the surgical risks, alternate skin incisions and pedicle versus free nipple graft techniques. It also discusses the optionof volume reduction by liposuction alone, which does not alter the nipple- areolar complex position.It talks about the impact of this surgery on decreasing breast cancer risk. We reviewed the timing of surgery relative to weight fluctuations and I've advised that surgery is best done at a realistic custodial stable weight. We talked about the outpatient nature of the surgery, drains, postoperative recovery, and time required off work. She should anticipate at least 4-6 off from work. Post-operative restrictions include no lifting, pushing, or pulling more than 5lbs for 4-6 weeks. I think Prabha Chen would receive significant symptomatic relief from a bilateral breast reduction. The following risks were reviewed in the video or in our discussion: Surgical Risks which are greater with open reduction: bleeding with risk of hematoma (<5%); numbness, which may be temporary or permanent; scarring, including abnormal scarring; infection (5-10%);fat necrosis resulting in a breast mass and possible need for revision. I stressed the likelihood of minor problems with delayed wound healing (~30%) and the rare complication of nippleareolar necrosis. She is also aware that there may be some residual pain after the surgery and that there may possibly be some asymmetry. Vertical or Lollipop Incision: Less scarring on breast, but slightly greater risk for delayed healing and desire for scar revision. (She was informed that her insurer might not cover secondary revisions for scarring or asymmetry.) [place] or [place] Pattern Incision: More scarring on breast, but lower risk for scar revision. (She was informed that her insurer might not cover secondary revisions for scarring or asymmetry.) Pedicle Technique: volume of reduction may be limited by need to provide an adequate blood supply to the nipple. There is a very small risk of nipple loss. Most women (~60%) will be able to breast-feed. Free Nipple Graft: The grafts will initially have no sensation and once fully healed may not respond to temperature and touch as they do now. She has also been informed that they may not look entirely normal and may have patchy hypopigmentation. She will not be able to breast feed with this technique. After fully discussing the options, she has opted to pursue a: x Bilateral Breast Reduction [place]a, Pedicle Bilateral Breast Reduction [place], FNG Anticipated resection: 800 grams right breast and 800 grams left breast BSA [employer] All other / [place] BSA [employer]/[place] All others ([place]) 1.98 900 She would like to proceed with surgery and I will inform her PCP of this plan. Photos taken today with informed signed consent Surgical Grid: Duration: 2.5 hours Timeframe: Nov Procedure: Bilateral breast reduction CPT: 60802 Surgical Technique:bilateral Breast Reduction [place], Pedicle (MAY CONVERT TO FNG) Surgical site: Breasts Side: Bilateral Anesthesia: General Follow up: 7-10 days for HCK THHF: Y/N: NO ( FNG 4-7 day f/u for bolster removal) H&P: no Need mammogram? (at or over 40)yes Plan: 1.Proceed with BBR I, Leela Sarmiento, have performed the documentation for this encounter in the presence of and acting as a scribe for Karl Rivera MD. documented in this encounter Plan of Treatment Not on file documented as of this encounter Procedures Procedure Name Priority Date/Time Associated Diagnosis Comments AMB REFERRAL TO PLASTIC SURGERY Routine 01/31/2022 5:17 PM EDT Macromastia Upper back pain documented in this encounter Visit Diagnoses Diagnosis Macromastia Hypertrophy of breast documented in this encounter Care Teams Machine Pack Assembler Relationship Specialty Start Date End Date Yessy Mondragon PA [address] [address] PCP - General Family Medicine 01/03/22 documented as of this encounter
--- OUTSIDE RECORDS SUMMARY | 2024-01-16 13:42 | XMS_ITS | Encounter Summary ---
Author Organization [facility] [place] [address] Care Team Providers Care Lift Supervisor Name Role Phone Yessy Mondragon Primary Care Provider [phone] Reason for Visit * Auth/Cert Specialty Diagnoses / Procedures Referred By Maren t Referred To Contact Diagnoses Hypertrophy of breast macromastia Procedures PRO BREAST REDUCTION REDUCTION MAMMOPLASTY, CHIQUIS (WRVU 16.03) MODIFIER GUEVARA Karl Rivera MD [facility] [place] [address] [facility] Referral ID Status Reason Start Date Expiration Date Visits Re quested Visits Authorized [id number] 1 1 Encounter Details Date Type Department Care Team (Latest Contact Info) Description 03/13/2022 6:28 AM EST - 03/13/2022 10:34 AM [facility] Hospital Encounter Outpatient [place] [address] Karl Rivera MD [facility] [place] [address] Macromastia Discharge Disposition: Home Social History Tobacco Use Types Packs/Day Years [...] Pulse 63 03/13/2022 10:15 AM EST Temperature 36.5 ??C (97.7 ??F) 03/13/2022 10:[address] Respiratory Rate 16 03/13/2022 10:15 AM EST Oxygen Saturation 99% 03/13/2022 10:15 AM EST Inhaled Oxygen Concentration - - Weight - - Height - - Body Mass Index - - documented in this encounter Discharge Instructions * Discharge Instructions* Mike Garcia RN - 03/13/2022 7:08 AM EST At 7:00 am you received 1000 mg of acetaminophen- Your next dose should not be taken before 8 hourshave passed. Next dose not before- 2:00 pm You should not take more than a total of 3000 mg of acetaminophen in a 24 hour period. General Anesthesia Discharge Instructions Go home and rest. You may be sleepy for several hours. Take it easy as sudden position changes may cause nausea and/or dizziness. Use caution on stairs. Do not smoke if you are alone. Follow a light to regular diet as tolerated today. If nausea occurs, start with clear liquids, and progress slowly to a regular diet. Do not drive, operate machinery, drink alcoholic beverages or make any legal decisions after havinggeneral anesthesia. The medications given change your reaction time and alter your judgement. IV site -- slight redness is normal, you can use warm compresses. If tenderness and redness increases or foul drainage occurs, please contact your M.D. Patients who have had endotracheal tubes/LMA (tubes used by the anesthesia staff to ensure a safe airway during your operation) may have a sore throat. This is normal and cold liquids or soothing lozenges will help ease this discomfort. Narcotic pain medications can cause constipation, please ask the surgeons office what they recommend for prevention of this. Some non-pharmaceutical means of constipation prevention include increasing intake of fluids, eating more fruits and vegetables as well as fruit juices. If you are uncomfortable and/or unable to urinate within 8 hours of discharge and it is before 5 pm, call your physician. If it is after 5pm go to the closest emergency room or call the hospital assembly line machine operator at [phone] and ask for physician bone worker covering for your physician. Questions or problems after 5pm or on a weekend: Call the [facility] assembly line machine operator at and ask for the physician bone worker covering for your doctor. * Patient Instructions* Severo Donnelly PA - 03/13/2022 6:37 AM EST Breast Reduction Discharge Instructions The healing process after breast reduction surgery varies with each person. You should expect to feel tired for the first 2 - 3 weeks due to anesthesia and the healing process. Rest often during the day and get a good night sleep. Pain (short term and residential) With any surgery there is some discomfort or pain. You should take both tylenol and ibuprofen. We will prescribe narcotic pain medication in case you require additional pain medication. Take as prescribed and only as needed. We recommend taking an ffvu-jmi-Updsyuc stool softener, such as Colace (docusate) or a gentle laxative while taking your narcotic pain reliever. This will help to maintain bowel regularity and prevent straining. Drink plenty of water. You will may have nerve pain after your surgery because the nerve endings have been disturbed. Nerve pain may feel like a burning sensation, itching or a shooting, electric shock pain. This is normaland will get better as you heal. Swelling Moderate bruising and swelling is normal in the first few weeks after surgery. The swelling will gradually go down, but it may remain for 3 to 6 months. To help with swelling wear your compression bra 26/11 Showering You may shower in two days. Do not take a bath or use a hot tub until incisions are completely healed. Have someone nearby during your first shower. Incisions/Dressings You may have some red, pink, yellow/clear drainage from your incisions for the first 1-2 weeks. Change gauze as needed. Continue to use dressings until there is no more drainage. DO???S AND DON???TS FOR THE NEXT [address] a motor vehicle for 1-2 weeks or until you can handle the steering wheel without discomfort. Do not drive while taking your narcotic. You will be able to wear a seat belt if you place a small pillow over your chest area. Do not engage in sexual activity for at least 1 week. Do not smoke or be around anyone who smokes for 2 weeks after your surgery. Smoking delays healing and can lead to infection. Do not lift more than 5 pounds or bend at the waist to lift for 6 weeks. Do not participate in strenuous activities such as running or aerobics for 6 weeks. Do resume walking at a gentle pace. Protect your incisions from the sun for 6 months. You may return to work in 1-6 weeks (average time is 3 weeks) depending upon your work activity. GETTING A GOOD NIGHT SLEEP Your surgeon may ask you to sleep on your back for a few weeks. Here are some suggestions for a good nights sleep. Try sleeping in a recliner. Have extra pillows in your bed for support: two along your side and one under your knees to relievelower back pressure. Buy a large body pillow or a pillow with arm rests for sitting up in bed. GETTING OUT OF BED You will be asked to limit the use of your arms for a few weeks after surgery. This can be a problem when trying to get out of bed. The following suggestions help you get out of bed with minimal use of your arms. When in bed, pull your knees up towards your chest and tip to the side, gently rolling out of bed. Take care not to roll onto your breasts. Create a nest of pillows to prop you in a semi-upright position helps give you that extra boost to get out of bed. Have someone put gentle pressure to your lower shoulder blades as you sit up. This gives you the extra power you need to get to your feet. Complications: Call your doctor with the following signs of infection: A temperature over 100.4 F or 38 C Redness at the incision line that spreads away from the incision after the first 48 lucian thick yellow, foul smelling drainage Increasing pain that is not relieved by your pain medicine One breast becomes much larger and more firm than the other Contact your Doctor To make an appointment or for questions about scheduling, please contact our administrative officesat [phone] For clinical questions, please call our nurses at [phone] Both offices are open Saturday thru Saturday 8a - 5p. With emergencies after hours, call the hospital assembly line machine operator at [phone] and ask for the Plastic Surgery Resident bone worker. FOLLOW-UP APPOINTMENTS: Future Appointments Date Time Provider Department Center 03/20/2022 10:00 AM NURSE, PLASTIC SURGERY [address] documented in this encounter Medications at Time of Discharge Medication Sig Dispensed Refills Start Date End Date ibuprofen (Advil) 200 mg Tablet Take 200 mg by mouth every 6 hours as needed for Pain. traMADoL (Ultram) 50 mg Tablet Take 1 tablet by mouth every 6 hours as needed for Pain (severe pain). 10 tablet 03/13/2022 03/20/2022 documented as of this encounter Progress Notes * Ivory Stafford RN - 03/13/2022 10:34 AM EST Patient did well, vss, denies pain, sob, and nausea, dressing/supportive bra in place, cdi, tolerated water, dc instructions reviewed with patient and friend Mayda, both state understanding, patient dressed and IV removed, dc home in stable condition with all belongings, script sent to [facility] and gave directions to get there. JOE Parrish documented in this encounter H&P Notes * Severo Donnelly PA - 03/13/2022 6:38 AM EST Patient Name: Prabha Chen Patient Age: 46 y.o. Birthdate: 1975 Admit date: 03/13/2022 Attending Physician: Karl Rivera MD PLASTIC SURGERY INTERVAL H&P CC: symptomatic macromastia S: Prabha Chen's condition is unchanged since H&P originally performed. Denies any new ED visits, hospitalizations, trauma, or new events. Overall the patient has been doing well and now presents for bilateral breast reduction, possible FNG No past medical history on file. No past surgical history on file. No Known Allergies No current facility-administered medications on file prior to encounter. Current Outpatient Medications on File Prior to Encounter Medication Sig Dispense Refill ??? ibuprofen (Advil) 200 mg Tablet Take 200 mg by mouth every 6 hours as needed for Pain. Family History Problem Relation Age of Onset ??? Loss Mother 2 early sabs unknown etiology ??? Alcohol Use Disorder Father from liver ca and hep B @ 64y ??? Congenital Anomalies Cousin webbed toes ??? Seizure Disorder Father of Baby 40 Jadiel onset etiology unknown ??? Seizure Disorder Father of Baby Relative 12 Jadiel's mom etiology unknown Social History Socioeconomic History ??? Marital status: Spouse name: Not on file ??? Number of children: Not on file ??? Years of education: Not on file ??? Highest education level: Not on file Occupational History ??? Not on file Tobacco Use ??? Smoking status: Never Smoker ??? Smokeless tobacco: Never Used Substance and Sexual Activity ??? Alcohol use: Yes Alcohol/week: 3.0 standard drinks Types: 3 Glasses of wine per week Comment: not in ??? Drug use: No ??? Sexual activity: Yes Partners: Male Other Topics Concern ??? Not on file Social History Narrative ??? Not on file Social Determinants of Health Financial Resource Strain: Not on file Food Insecurity: Not on file Transportation Needs: Not on file Physical Activity: Not on file Housing Stability: Not on file Review of Systems: Constitutional: denies fever, chills Skin: denies rashes or skin changes HEENT, CV, Resp, GI, , Neuro: negative O: No data found. NAD, A&Ox3 Non-labored respirations, clear to auscultation bilaterally Regular rate and rhythm Site: bilateral breast marked by attending, I was present AP: 46 y.o. female with macromastia. - After extensive discussion of the risks, benefits, and alteratives of surgical intervention, the patient consented to proceed with surgery. - IV antibiotics ordered - Proceed to OR for: Procedure(s): REDUCTION MAMMOPLASTY, CHIQUSI (WRVU 16.03) MODIFIER GUEVARA Opioid PDMP 01/25/2022 [place] PDMP Query Date 03/13/2022 [place] PDMP Query Date 03/13/2022 [place] PDMP Query Date 03/13/2022 [place] PDMP QUERY DATE: 03/13/22 Risk Assessment Category: Low Prabha B Midthun is getting a prescription opioid for the treatment of acute post-operative pain related to the surgical procedure during this encounter. Pt has been advised to take the smallest dose possible to control pain and as the pain improves to take smaller doses and increase the time between doses. In addition to this medication, pt was educated on the non-opioid pain medications that can be taken for adjunct treatment of pain. Non-pharmacological treatments were also discussed that include but not limited to ice, elevation, and activity modification as appropriate. The Acute Opioid Therapy Informed Consent form has been completed during this encounter and sent tomedical records for scanning to chart. SAI Vigil documented in this encounter Miscellaneous Notes * Brief Op Note - Michael Jay MD - 03/13/2022 9:42 AM EST Brief Operative Note Patient Name: Prabha Chen : [id number] MR#: [id number] Case Date: 03/13/2022 Surgeon: Surgeon(s) and Role: * Karl Rivera MD - Primary * Severo Donnelly PA - Physician Continuity Reader * Michael Jay MD - Resident Preoperative diagnosis: macromastia Postoperative diagnosis: macromastia Procedure(s) (LRB): REDUCTION MAMMOPLASTY, CHIQUIS (WRVU 16.03) (Bilateral) MODIFIER GUEVARA (N/A) Anesthesia: General Minimal sedation Findings: symptomatic macromastia Complications: none Estimated Blood Loss: 50 mL* No values recorded between 03/13/2022 7:53 AM and 03/13/2022 9:34 AM * Specimens removed during surgery: Order Name Source Comment Collection Info Order Time SPECIMEN TO PATHOLOGY RIGHT BREAST REDUCATION FINAL WEIGHT 0.805KG FRESH BREAST SPECIMEN macromastia RIGHT BREAST REDUCATION excision 03/13/2022 9:05 AM Time specimen removed from patient: 9:03 AM Number of tissue samples (in container) 1 SPECIMEN TO PATHOLOGY LEFT BREAST REDUCATION FINAL WEIGHT 0.895KG FRESH BREAST SPECIMEN macromastia LEFT BREAST REDUCATION excision 03/13/2022 9:05 AM Time specimen removed from patient: 9:04 AM Number of tissue samples (in container) 1 Fluids: Intraprocedure Crystalloid Total Intake lactated ringers infusion 300.00 mL Total Intake 300 mL Output Blood Loss 50 mL Total Output 50 mL Net Net Volume 250 mL PRBCs: none (See Anesthesia Record/Report for Other Blood Products) Urine Output: (no urine output recorded) Drains: none Disposition: awakened from anesthesia, extubated and taken to the recovery room in a stable condition, having suffered no apparent untoward event. Condition: doing well without problems (Please see the Surgical Encounter Summary for any Implant and Specimen details pertinent to this patient.) Surgical Infection Prevention Bundle Used? N/A Post Op Plan: 7-10 days: Return for wound check, suture removal, give patient pathology report, stefanie bra fitting, review post-op activity restrictions 6 months: long-term f/u with surgeon Future Appointments Date Time Provider Department Center 03/20/2022 10:00 AM NURSE, PLASTIC SURGERY [facility] [address] [place] [address] * Op Note - Karl Rivera MD - 03/13/2022 7:53 AM EST [facility] Operative Note Patient Name: Prabha Chen : [id number] MR#: [id number] Case Date: 03/13/2022 Surgeon: Surgeon(s) and Role: * Karl Rivera MD - Primary * Severo Donnelly PA - Physician Continuity Reader * Michael Jay MD - Resident Preoperative diagnosis: macromastia Postoperative diagnosis: macromastia Procedure(s) (LRB): REDUCTION MAMMOPLASTY, CHIQUIS (WRVU 16.03) (Bilateral) MODIFIER GUEVARA (N/A) Anesthesia: General Estimated Blood Loss: 50 mL Specimens removed during surgery: Order Name Source Comment Collection Info Order Time SPECIMEN TO PATHOLOGY RIGHT BREAST REDUCATION FINAL WEIGHT 0.805KG FRESH BREAST SPECIMEN macromastia RIGHT BREAST REDUCATION excision 03/13/2022 9:05 AM Time specimen removed from patient: 9:03 AM Number of tissue samples (in container) 1 SPECIMEN TO PATHOLOGY LEFT BREAST REDUCATION FINAL WEIGHT 0.895KG FRESH BREAST SPECIMEN macromastia LEFT BREAST REDUCATION excision 03/13/2022 9:05 AM Time specimen removed from patient: 9:04 AM Number of tissue samples (in container) 1 Drains: * No LDAs found * Surgical Closure: Primary Closure - skin incision is completely closed without any wires, halie, drains or other devices Disposition: awakened from anesthesia, extubated and taken to the recovery room in a stable condition, having suffered no apparent untoward event. Condition: doing well without problems (Please see the Surgical Encounter Summary for any Implant and Specimen details pertinent to this patient.) HPI/Surgical Indications: Bilateral symptomatic macromastia Procedure Description: Risks, benefits, alternatives of bilateral breast reduction discussed with the patient and informedconsent obtained. She desired to proceed. The brests to be operated on were marked. Multiple markings were placed to include: sternal midline, meridian of the breast, new location of the nipples, proposed scar lines. Patient was able to visualize these markings agree with them. She was subsequent taken back to the operating room, placed supine on operating room table, and a general anesthetic wasinduced. She was placed in supine position arms out and secured in the chest was prepped and drapedinto the field in the normal sterile fashion. Began on the right breast 42 mm cookie cutter was used to andrew a hughes around the right and left nipples we designed 8 cm wide superior medial pedicle which encompassed the superior medial aspect of the breast continuing down to the nipple area complexand extending a centimeter beyond. A Byrnes pattern incision was marked in the breast in the preoperative area. On the right breast we incised around the area complex, de-epithelialized the medial pedicle, and completed the remainder of the incision lines. We then resected the tissues of the inferior medial, central, lateral and superior margins of the breast tissue which were sent off as specimen. Excess skin in the inferior medial lateral aspect of the breast was then excised. The wounds were t hen copiously irrigated out with saline solution and hemostasis assured. Skin was tentatively closed with surgical stainless steel ysabel. We then turned attention to the contralateral side with thesame procedure was performed. Total resection weight was 805g on the right 895g on the left. The patient was then set up on the operative table symmetry was assessed with excellent symmetry right to left in this position. We also marking the locations of the nipple areolar complex with the 42 mm cookie cutter. She was then placed back down in supine position. The new area of the nipple area complex was de-epithelialized and the nipple inset into this location using deep 4-0 Vicryl and superficial 4- 0 monocryl suture remainder incision lines were closed in layers using deep 3-0 Vicryl and superficial subcuticular 4-0 running Monocryl sutures. At the end of the case, the nipples were warm pink symmetric. All incision lines are dressed with xeroform and gauze dressings, and a post op surgical bra placed. She was subsequently awakened, extubated, and delivered to PACU in stable condition. I was present for performed entire procedure with the assistance of the resident. Surgical Infection Prevention Bundle Used? No Attestation: Case Date: 03/13/2022 I was present and I participated during the entire procedure (does not need to include opening and closing). Karl Rivera MD 03/14/2022 documented in this encounter Plan of Treatment Not on file documented as of this encounter Procedures Procedure Name Priority Date/Time Associated Diagnosis Comments SPECIMEN TO PATHOLOGY Routine 03/13/2022 9:05 AM EST SPECIMEN TO PATHOLOGY Routine 03/13/2022 9:05 AM EST SURGICAL PATHOLOGY REPORT Routine 03/13/2022 9:03 AM EST MODIFIER GUEVARA 03/13/2022 7:35 AM EST Macromastia Breast Reduction (16108) 03/13/2022 7:35 AM EST Macromastia REDUCTION MAMMOPLASTY, BILATERAL Routine 03/13/2022 6:51 AM EST Macromastia documented in this encounter Results * Specimen to Pathology (03/13/2022 9:05 AM EST) AP Specimen 03/13/2022 9:05 AM EST 03/13/2022 9:05 AM EST Narrative [facility] - 03/13/2022 9:05 AM EST Specimen requisition ordered. ??Separate Pathology report to follow Karl Rivera MD PATHOLOGY/CYTOLOGY ORDERABLES [facility] [place] [address] * Specimen to Pathology (03/13/2022 9:05 AM EST) AP Specimen 03/13/2022 9:05 AM EST 03/13/2022 9:05 AM EST Narrative [facility] - 03/13/2022 9:05 AM EST Specimen requisition ordered. ??Separate Pathology report to follow Karl Rivera MD PATHOLOGY/CYTOLOGY ORDERABLES [facility] [place] [address] * Surgical Pathology Report (03/13/2022 9:03 AM EST) Final Diagnosis [id number] ? Location: [facility] The signing pathologist has (i) examined the relevant preparation(s) for the specimen(s) and (ii) rendered or confirmed the diagnosis(es). . ?Surgical Pathology DIAGNOSIS A - Right breast tissue, reduction mammoplasty: ??- Benign breast tissue with fibrocystic changes. B - Left breast tissue, reduction mammoplasty: ??- Benign breast tissue with fibrocystic changes. Electronically signed by: ?Trini Abreu DO Verified: ??03/19/2022 9:22 ?? Pathologist Performed at: ??-[facility] Dept. of Pathology, [place] [address] Cold Saw Operator: Corry Ingram MD, AP, ??CLIA Certificate: [id number] SPECIMEN(S) SUBMITTED A - RIGHT BREAST REDUCATION 0.805 KG; excision (1) B - LEFT BREAST REDUCATION 0.895 KG; excision (1) CLINICAL INFORMATION Macromastia SPECIMEN PROCESSING A - Labeled/Fixativ e: Right breast reduction, fresh. Quantity/Size/W eight: Multiple, 21 x 18 x 5 cm, 800 g. Tissue Description: Fibrofatty breast tissue. Skin: Unremarkable. Sectioning: Adipose and dense, ohara-white fibrous tissue. Sections/Proces sing: [employer] sections in 3 cassettes labeled A1-A3. B - Labeled/Fixativ e: Left breast reduction, fresh. Quantity/Size/W eight: Multiple, 20 x 19 x 5 cm, 890 g. Tissue Description: Fibrofatty breast tissue. Skin: Unremarkable. Sectioning: Adipose and dense, ohara-white fibrous tissue. Sections/Proces sing: [employer] sections in 3 cassettes labeled B1-B3. ??sns 03/19/2022 9:22 AM EST [facility] BREAST STRUCTURE / Unknown 03/13/2022 9:03 AM EST 03/13/2022 9:03 AM EST BREAST STRUCTURE / Unknown 03/13/2022 9:03 AM EST 03/13/2022 9:03 AM EST Karl Rivera MD PATHOLOGY/CYTOLOGY ORDERABLES [facility] [place] [phone] documented in this encounter Visit Diagnoses Diagnosis Macromastia Hypertrophy of breast documented in this encounter Administered Medications Inactive Administered Medications - up to 3 most recent administrations Medication Order MAR Action Action Date Dose Rate Site acetaminophen (Tylenol) tablet 1,000 mg 1,000 mg, Oral, ONCE, 1 dose, On Sat03/13/22 at 0630 Given 03/13/2022 7:01 AM EST 1,000 mg lactated ringers infusion 1,000 mL, at 100 mL/hr, Intravenous, CONTINUOUS, Starting on Sat03/13/22 at 0715, Until Sat03/13/22 at 1041, Day of Surgery (Day of Procedure) Restarted 03/13/2022 7:32 AM EST New Bag 03/13/2022 7:15 AM EST 1,000 mLs 100 mL/hr documented in this encounter Active and Recently Administered Medications Due to Daylight Saving Time, this section may contain times in both EDT and EST. Scheduled Medication Order 03/11/2022 03/12/2022 03/13/2022 acetaminophen (Tylenol) tablet 1,000 mg (COMPLETED) 1,000 mg, Oral, ONCE, 1 dose, On Sat03/13/22 at 0630 0701 (Given - Provid er: Mike Dalal RN) Continuous Medication Order 03/11/2022 03/12/2022 03/13/2022 lactated ringers infusion (CANCELED) 1,000 mL, at 100 mL/hr, Intravenous, CONTINUOUS, Starting on Sat03/13/22 at 0715, Until Sat03/13/22 at 1041, Day of Surgery (Day of Procedure) 0715 (New Bag - Prov ider: Mike Dalal RN)0731 (Paused - Provider: Estefanía Hickey CRNA - Comment: Switch to gravity)0732 (Restarted - Provider: Estefanía Hickey CRNA)0748 (Canceled Entry - Provider: Estefanía Hickey CRNA - Comment: Switch to gravity)0749 (Canceled Entry - Provider: Estefanía Hickey CRNA)0932 (Anesthesia Volume Adjustment - Provider: Estefanía Hickey CRNA) PRN Medication Order 03/11/2022 03/12/2022 03/13/2022 lidocaine-EPINEPHrine (1% - 1:100,000) injection (CANCELED) ONCE PRN, Starting on Sat03/13/22 at 0918, Until Sat03/13/22 at 1244, Intra-Operative (Intra-Procedure), Routine 0918 (Given - Provid er: Karl Rivera MD - Comment: 10mL used with each incision.) documented in this encounter Care Teams Lift Supervisor Relationship Specialty Start Date End Date Yessy Mondragon PA [address] [place] [id number] PCP - General Family Medicine 01/03/22 documented as of this encounter
--- OUTSIDE RECORDS SUMMARY | 2024-01-16 13:42 | XMS_ITS | Encounter Summary ---
Author Organization [facility] [place] [address] Care Team Providers Care Pari [employer] Ticket Checker Name Role Phone Yessy Mondragon Primary Care Provider [phone] Reason for Visit * Auth/Cert Specialty Diagnoses / Procedures Referred By Maren granger Referred To Contact Diagnoses Hypertrophy of breast macromastia Procedures PRO BREAST REDUCTION REDUCTION MAMMOPLASTY, CHIQUIS (WRVU 16.03) MODIFIER Karl Valdez MD [facility] [place] [address] [facility] Referral ID Status Reason Start Date Expiration Date Visits Re quested Visits Authorized [id number] 1 1 Encounter Details Date Type Department Care Team (Late st Contact Info) Description 03/13/2022 7:33 AM EST Anesthesia Event [place] [address] Harish Castro MD [facility] [place] [address] Estefanía Hickey CRNA [facility] [place] [address] Anesthesia Record Procedure Summary Procedure Name Responsible Anesthesiologist Anesthesia Start Time Anesthesia Stop Time REDUCTION MAMMOPLASTY, CHIQUIS (WRVU 16.03) (Bilateral: Breast) Harish Castro MD 03/13/22 0733 03/13/22 0945 Events Date Time Event Comment 03/13/2022 0725 0733 AN Verify 0733 Start 0736 An Start Data 0739 An Induction 0741 An Intubation 0741 Anesthesia Ready 0754 Procedure Start Time out com plete 0839 Break/Relief In I assumed ca re for Break Relief before which we: 1. Identified the patient 2. Identified the responsible provider(s) 3. Reviewed the pertinent medical history 4. Discussed the surgical plan and course 5. Reviewed intra-op anesthesia management and issues during anesthesia 6. Set expectations for the relief (and/or post-procedure) period 7. Allowed opportunity for questions and acknowledgement of understanding HARISH CASTRO MD 0855 Break/Relief Out 0940 Extubation/LMA Out 0940 an stop data 0945 Recovery or ICU Handoff Eryn ent care was transferred to the destination unit staff after review of the patient's medical history, current anesthetic/surgical status and plan, according to the Provider Handoff Checklist. 0945 Stop Meds Name Total Propofol 200 mg Propofol INF 452 mg Midazolam 2 mg Dexamethasone 8 mg Ondansetron 8 mg ePHEDrine 10 mg HYDROmorphone 2 mg/mL 1 mg ceFAZolin 2 g Dexmedetomidine 12 mcg lactated ringers infusion 700 mL * Agents Name O2 Air N2O Sevoflurane (et) * Blood No blood administrations on file. Lines, Drains, and Airways Type Details Placement Removal Incision 03/13/22; 0845; Righ t; breast 03/13/22 0845 by Sung Coello RN Incision 03/13/22; 0846; Left ; breast 03/13/22 0846 by Sung Coello, JOE (RETIRED) Peripheral IV Line - Single Lumen 03/13/22; 0714; cephalic vein (lateral side of arm), left; wdlk-sva-mbdevw catheter system; Anatomical Landmarks; 20 gauge; lh; intradermal injection, age-appropriate response; 0; 03/13/22; 1039 03/13/22 0714 by Mike Pickett RN 03/13/22 1039 by Ivory Stafford RN Supraglottic Mask Ventilation: Ea sy (1); LMA Type: iGel; LMA Size: 3; Inserted by: Ruperto LOZOYA; Removal Date: 03/13/22; Removal Time: 93903/13/22 0741 by Estefanía Hickey CRNA 03/13/22 0940 by Estefanía Hickey CRNA documented in this encounter Social History Tobacco Use Types Packs/Day Years Used Date Smoking Tobacco: Never Smokeless Tobacco: Never Alcohol Use Standard Drinks/Week Comments Yes 3 (1 standard drink = 0.6 oz pur e alcohol) not in Sex and Gender Information Value Date Recorded Sex Assigned at Not on file Gender Identity Not on file Sexual Orientation Not on file documented as of this encounter OR Notes * Anesthesia Postprocedure Evaluation - Harish Castro MD - 03/13/2022 10:01 AM EST Department of Anesthesiology Post-procedure Note Patient: Prabha Rolon Midthun Procedure Summary Date: 03/13/22 Room / Location: [facility] [place] [address] [place] [address] OSC Anesthesia Start: 732 Anesthesia Stop: 944 Procedures: REDUCTION MAMMOPLASTY, CHIQUIS (WRVU 16.03) (Bilateral Breast) MODIFIER GUEVARA (N/A ) Diagnosis: Macromastia (macromastia) Surgeons: Karl Rivera MD Responsible Provider: Harish Castro MD Anesthesia Type: general ASA Status: 1 All Anesthesia Providers: Anesthesiologist: Harish Castro MD LABORER PIPELINES: Estefanía Hickey CRNA Vitals Value Taken Time BP 103/67 03/13/22 1015 Temp 36.5 ??C (97.7 ??F) 03/13/22 1015 Pulse 66 03/13/22 1022 Resp 16 03/13/22 1015 SpO2 97 % 03/13/22 1021 Pain Level 0 03/13/22 1015 Vitals shown include unvalidated device data. Patient Location: PACU/[facility] Level of Consciousness: Conscious but Sleepy Pain Management: Satisfactory Analgesia PONV: None Cardiovascular Status: Hemodynamically Stable Respiratory Status: Stable Respiratory Status Postoperative Fluid Status: Intravascular EUvolemia Possible Anesthetic Complications: NONE apparent at time of evaluation Final Primary Anesthesia Type: General (The anesthetic type performed was the same as planned.) Comments: * Anesthesia Preprocedure Evaluation - Harish Castro MD - 03/12/2022 3:30 PM EST Pre-Anesthesia Evaluation for: Prabha Chen a 46 y.o. female. Procedure(s): REDUCTION MAMMOPLASTY, CHIQUIS (WRVU 16.03) MODIFIER GUEVARA There are no problems to display for this patient. No past medical history on file. No past surgical history on file. Social History Tobacco Use ??? Smoking status: Never Smoker ??? Smokeless tobacco: Never Used Substance Use Topics ??? Alcohol use: Yes Alcohol/week: 3.0 standard drinks Types: 3 Glasses of wine per week Comment: not in Social History Substance and Sexual Activity Drug Use No No Known Allergies Medications: MAR and/or home medications have been reviewed. Physical Exam: Preprocedure Vitals Current as of 03/12/22 1530 No BP, pulse, respiration, SpO2, or temperature recorded. Height: 175.3 cm (5' 9) (01/25/22) Weight: 80.3 kg (177 lb) (01/25/22) BMI: 26.14 IBW: 66.2 kg (146 lb 0.4 oz) Airway Assessment: Mallampati: II TM distance: >3 FB Neck ROM: full Cardiovascular Assessment: Rhythm: regular Rate: normal Pulmonary Assessment: unlabored breathing Dental Assessment: - normal exam Misc Assessment: Patient is wearing No contact(s). IV access: Peripheral line Last Filed Perioperative Cognitive Screening None Anesthesia Plan: ASA 1 general, with a(n) intravenous induction Region - Other Informed Consent: Anesthetic plan and risks discussed with patient. Attending NOTE Brief HPI: 46 y.o. with macromastia to OR for BBR BP Readings from Last 3 Encounters: 11/01/14 130/72 METS:>4 Cardiac Symptoms: denies LABS: Type and Screen: No results found for: ABORH Past anesthetic problems: denies Previous airway notes (on eDH): none NPO status: Reviewed and appropriate Anesthetic Plan: GA Monitoring: Standard ASA monitors Anesthesia Screening documented in this encounter Plan of Treatment Not on file documented as of this encounter Visit Diagnoses Not on filedocumented in this encounter Administered Medications Inactive Administered Medications - up to 3 most recent administrations Medication Order MAR Action Action Date Dose Rate Site ceFAZolin (Ancef) 1 g in dextrose 5% 50 mL infusion Intravenous, PRN, Starting on Sat03/13/22 at 0741, Until Sat03/13/22 at 0956, Administer over 30 Minutes, Anesthesia Intra-op Given 03/13/2022 7:41 AM EST 2 g dexAMETHasone (Decadron) injection Intravenous, PRN, Starting on Sat03/13/22 at 0750, Until Sat03/13/22 at 0956, Anesthesia Intra-op, Routine Given 03/13/2022 7:50 AM EST 8 mg dexmedeTOMIDine (Precedex) (4 mcg/mL) bolus injection (Anesthsia) Intravenous, PRN, Starting on Sat03/13/22 at 0756, Until Sat03/13/22 at 0956, Anesthesia Intra-op, Routine Given 03/13/2022 9:22 AM EST 4 mcg Given 03/13/2022 7:56 AM EST 8 mcg ePHEDrine sulfate (5 mg/mL) multi-dose injection Intravenous, PRN, Starting on Sat03/13/22 at 0851, Until Sat03/13/22 at 0956, Anesthesia Intra-op, Routine Given 03/13/2022 9:10 AM EST 5 mg Given 03/13/2022 8:51 AM EST 5 mg HYDROmorphone (Dilaudid) (2 mg/mL) multi-dose injection solution Intravenous, PRN, Starting on Sat03/13/22 at 0743, Until Sat03/13/22 at 0956, Anesthesia Intra-op, Routine Given 03/13/2022 8:42 AM EST 0.2 mg Given 03/13/2022 8:13 AM EST 0.4 mg Given 03/13/2022 7:43 AM EST 0.4 mg lactated ringers infusion 1,000 mL, at 100 mL/hr, Intravenous, CONTINUOUS, Starting on Sat03/13/22 at 0715, Until Sat03/13/22 at 1041, Day of Surgery (Day of Procedure) Restarted 03/13/2022 7:32 AM EST New Bag 03/13/2022 7:15 AM EST 1,000 mLs 100 mL/hr midazolam (pf) (Versed) (1 mg/mL) multi-dose injection Intravenous, PRN, Starting on Sat03/13/22 at 0736, Until Sat03/13/22 at 0956, Anesthesia Intra-op, Routine Given 03/13/2022 7:36 AM EST 2 mg ondansetron (pf) (Zofran) (2 mg/mL) injection Intravenous, PRN, Starting on Sat03/13/22 at 0913, Until Sat03/13/22 at 0956, Anesthesia Intra-op, Routine Given 03/13/2022 9:13 AM EST 8 mg propofoL (Diprivan) (10 mg/mL) infusion Intravenous, CONTINUOUS PRN, Starting on Sat03/13/22 at 0739, Until Sat03/13/22 at 0956, Anesthesia Intra-op, Routine New Bag 03/13/2022 7:39 AM EST 50 mcg/kg/min 24 mL/hr propofoL (Diprivan) 10 mg/mL bolus injection (Anesthesia) Intravenous, PRN, Starting on Sat03/13/22 at 0740, Until Sat03/13/22 at 0956, Anesthesia Intra-op Given 03/13/2022 7:40 AM EST 200 mg documented in this encounter Care Teams P[employer] Ticket Checker Relationship Specialty Start Date End Date Yessy Mondragon PA [address] [address] PCP - General Family Medicine 01/03/22 documented as of this encounter
--- OUTSIDE RECORDS SUMMARY | 2024-01-16 13:42 | XMS_ITS | Encounter Summary ---
[place] [address] Care Team Providers Care Retort Feeder Ground Bone Name Role Phone Adriana Sánchez Primary Care Provider [phone] Reason for Visit * Reason Comments Skin Lesion Encounter Details Date Type Department Care Team (Late st Contact Info) Description 03/08/2011 4:00 PM EDT Office Visit Dermatology [address] [place] [address] [address] [place] [address] Heladio Rose MD [address], [facility] [place] [address] Nevus (Primary Dx); Nevus Social History Tobacco Use Types Packs/Day Years Used Date Smoking Tobacco: Never Sex and Gender Information Value Date Recorded Sex Assigned at Not on file Gender Identity Not on file Sexual Orientation Not on file documented as of this encounter Progress Notes * Heladio Rose MD - 03/08/2011 4:38 PM EDT Problem: Skin lesion left nasal sidewall. Prabha is a 35-year-old woman who for about three years has noted a slowly growing lesion on the left nasal sidewall. It started off as a flat brown spot but more recently has become slightly elevated. It has not bled, scabbed or crusted. The patient is brown eyed and dark haired but burned easily in the sun as a teenager. She always tried to protect herself and uses sunscreen everyday. She is not aware of any personal or family history of skin cancer or melanoma. She is referred by Adriana Baker. Physical examination reveals a pleasant 35-year-old woman who has a dome shaped somewhat ovoid light nagel papule on the left mid nasal sidewall consistent with an early melanocytic nevus probable compound versus intradermal type. It is easily covered and well covered by cosmetics. The remainder of the facial skin examination is unremarkable. She does have brown eyes and brown hair. Assessment & Plan: Compound versus intradermal nevus developing, left nasal sidewall. a. Patient reassured with benign evaluation. b. Difficult to predict whether this will get much larger in size, but would not recommend excision at this time. The patient agrees. c. I have asked her to return to see me if it enlarges to a point where she does want it removed. d. Continue sun avoidance precautions. Cc: Adriana Baker PA-C documented in this encounter Plan of Treatment Not on file documented as of this encounter Visit Diagnoses Diagnosis Nevus- Primary Benign neoplasm of skin, site unspecified Nevus Congenital vascular hamartomas documented in this encounter Care Teams Retort Feeder [employer] Bone Relationship Specialty Start Date End Date Adriana Sánchez PA PCP - General 01/15/11 10/28/14 documented as of this encounter
--- OUTSIDE RECORDS SUMMARY | 2024-01-16 13:42 | XMS_ITS | Encounter Summary ---
[place] [address] Care Team Providers Care Gut Dropper Name Role Phone Yessy Mondragon Primary Care Provider Reason for Referral * Consultation (Routine) - Closed Specialty Diagnoses / Procedures Referred By Maren granger Referred To Contact Plastic Surgery Diagnoses Macromastia Upper back pain Yessy Mondragon PA [address] [place] [address] [facility] Plastic Surg [address] [place] [id number] Referral ID Status Reason Start Date Expiration Date V isits Requested Visits Authorized [id number] Closed Consult, Test & Treat 01/03/2022 01/03/2023 6 6 Encounter Details Date Type Department Care Team (Late st Contact Info) Description 01/03/2022 Transcribe Orders eDH Incoming Referrals [phone] Yessy Mondragon PA [address] [place], [place] [address] Macromastia; Upper back pain Social History Tobacco Use Types Packs/Day Years [...] Upper back pain documented in this encounter Results * Referral to Plastic Surgery (01/31/2022 5:17 PM EDT) Yessy GIBBS OUTPATIENT REFERRAL ORDERABLES documented in this encounter Visit Diagnoses Diagnosis Macromastia Hypertrophy of breast Upper back pain documented in this encounter Care Teams Gut Dropper Relationship Specialty Start Date End Date Yessy Mondragon PA [address] [place] [id number] PCP - General Family Medicine 01/03/22 documented as of this encounter
--- OUTSIDE RECORDS SUMMARY | 2024-01-16 13:42 | XMS_ITS | Encounter Summary ---
[place] [address] Care Team Providers Care Elevator Operator Name Role Phone Johnnie Peck MD Primary Care Provider [phone] Encounter Details Date Type Department Care Team (Latest Contact Info) Description 01/18/2015 10:57 AM EDT - 01/18/2015 11:59 PM EDT Hospital [place] [address] Nidia Mercado CNM [address] [place] [address] Discharge Disposition: Home Social History Tobacco Use Types Packs/Day Years Used Date Smoking Tobacco: Never Alcohol Use Standard Drinks/Week Comments Yes 3 (1 standard drink = 0.6 oz pur e alcohol) not in Comments Yes Sex and Gender Information Value Date Recorded Sex Assigned at Not on file Gender Identity Not on file Sexual Orientation Not on file documented as of this encounter Medications at Time of Discharge Medication Sig Dispensed Refills Start Date End Date Tkyjepvo-Ag-Bpt-Fe-FA Tablet Take by mouth. 01/25/2022 documented as of this encounter Plan of Treatment Not on file documented as of this encounter Procedures Procedure Name Priority Date/Time Associated Diagnosis Comments US OB LIMITED Routine 01/18/2015 11:50 AM EDT documented in this encounter Results * US OBs Limited (01/18/2015 11:50 AM EDT) Anatomical Region Laterality Modality Pelvis, Abdomen Ultrasound 01/18/2015 11:5 0 AM EDT Narrative 01/18/2015 12:12 PM EDT OBSTETRICS REPORT ?(Signed Final 01/18/2015 12:11 ? pm) Patient Info ID #: ? [id number] ?: ??[birth year] (39 yrs) Name: ? CHAITANYA B MIDTHUN ?Visit Date: 01/18/2015 11:43 am Performed By Performed By: ?Jenn Nunez RDMS Associate: ? Morteza MEYER, Lazarus Moses Attending: ? Caitlin Lou MD Referred By: ? NIDIA MERCADO CNM Service(s) Provided ??UOBLIM - Disha - Position Only ( 1 or more fetuses) - ?? [id number] ??[id number] ??UOBTV - Viability - Cervical Length - Transvaginal - ??[id number] ??[id number] Indications ??complete posterior previa edd11/10 OB History Blood Type: ?? A+ ? Height: ??5'8 ?? Weight: ?? 156 ? BMI: ??23.72 Evaluation Num Of Fetuses: ? 1 Heart ? 130 Rate(bpm): Cardiac Activity: ?? Observed, normal rhythm Presentation: ? Cephalic Placenta: ? Posterior P. Cord Insertion: ??Within Normal Limits Amniotic Fluid DISHA FV: ?Appropriate for gestational age DISHA Sum: ? 16.01 ?? cm ? Larg Pckt: ?5.94 ??cm RUQ: ?? 5.94 ?cm ?LUQ: ?? 4.04 ?? cm RLQ: ?? 2.45 ?cm ?LLQ: ?? 3.58 ?? cm -------- Biometry -------- CER: ?40.3 ??mm ?G. Age: ?? 34w 2d ?80 ??% LV: ?7.3 ??mm CM: ?7.5 ??mm Gestational Age LMP: ? 32w 0d ?Date: ??06/08/14 ? EDNA: ?? 03/15/15 Best: ?32w 0d ?? Det. By: ??LMP ??(06/08/14) ?EDNA: ?? 03/15/15 ------- Anatomy ------- Heart: ?Limited Views Stomach: ?Visualized Cord Vessels: ? 3 Vessel Cord - WNL Kidneys: ?Visualized Bladder: ?Visualized Doppler - Uterine Artery Right S/D Ratio: ? RI: ?PI: ?%Tile Left S/D Ratio: ?RI: ?PI: ?%Tile Cervix Uterus Adnexa Cervix Length: ? 3.2 ??cm. Closed Left Ovary Not visualized Right Ovary Not visualized Impression 3rd Trimester Summary (Placental Location ONLY) Single intrauterine with a gestational age of 32w 0d based on LMP. Amniotic fluid volume is appropriate for gestational age, DISHA = 16.01 cm, MVP = 5.94 cm. Limited study performed for placental location. ??The posterior placenta is 2.5 cm from the internal cervical os. Transvaginal imaging was performed to evaluate placental location. I ??viewed the images and agree with the above interpretation. ?Caitlin Lou MD Electronically Signed Final Report ?? 01/18/2015 12:11 pm Film and interpretation reviewed by the attending Procedure Note Caitlin Lou MD - 01/18/2015 OBSTETRICS REPORT (Signed Final 01/18/2015 12:11 pm) Patient Info ID #: [id number] : [birth year] (39 yrs) Name: CHAITANYA Rolon MIDTHUN Visit Date: 01/18/2015 11:43 am Performed By Performed By: Jenn Nunez RDMS Associate: Lazarus Pro MD Attending: Caitlin Lou MD Referred By: NIDIA PETERSON Service(s) Provided UOBLIM - Disha - Position Only ( 1 or more fetuses) - [id number] UOBTV - Viability - Cervical Length - Transvaginal - [id number] Indications complete posterior previa edd11/10 OB History Blood Type: A+ Height: 5'8 Weight: 156 BMI: 23.72 Evaluation Num Of Fetuses: 1 Heart 130 Rate(bpm): Cardiac Activity: Observed, normal rhythm Presentation: Cephalic Placenta: Posterior P. Cord Insertion: Within Normal Limits Amniotic Fluid DISHA FV: Appropriate for gestational age DISHA Sum: 16.01 cm Larg Pckt: 5.94 cm RUQ: 5.94 cm LUQ: 4.04 cm RLQ: 2.45 cm LLQ: 3.58 cm -------- Biometry -------- CER: 40.3 mm G. Age: 34w 2d 80 % LV: 7.3 mm CM: 7.5 mm Gestational Age LMP: 32w 0d Date: 06/08/14 EDNA: 03/15/15 Best: 32w 0d Det. By: LMP (06/08/14) EDNA: 03/15/15 ------- Anatomy ------- Heart: Limited Views Stomach: Visualized Cord Vessels: 3 Vessel Cord - WNL Kidneys: Visualized Bladder: Visualized Doppler - Uterine Artery Right S/D Ratio: RI: PI: %Tile Left S/D Ratio: RI: PI: %Tile Cervix Uterus Adnexa Cervix Length: 3.2 cm. Closed Left Ovary Not visualized Right Ovary Not visualized Impression 3rd Trimester Summary (Placental Location ONLY) Single intrauterine with a gestational age of 32w 0d based on LMP. Amniotic fluid volume is appropriate for gestational age, DISHA = 16.01 cm, MVP = 5.94 cm. Limited study performed for placental location. The posterior placenta is 2.5 cm from the internal cervical os. Transvaginal imaging was performed to evaluate placental location. I viewed the images and agree with the above interpretation. Caitlin Lou MD Electronically Signed Final Report 01/18/2015 12:11 pm Film and interpretation reviewed by the attending Nidia Mercado CNLisa IMG US OB ORDERAB LES documented in this encounter Visit Diagnoses Not on filedocumented in this encounter Care Teams Elevator Operator Relationship Specialty Start Date End Date Johnnie Peck MD [address] [place] [id number] PCP - General 10/29/14 01/02/22 documented as of this encounter
--- OUTSIDE RECORDS SUMMARY | 2024-01-16 13:42 | XMS_ITS | Encounter Summary ---
Author Organization [facility] [place] [address] Care Team Providers Care Oven Stripper Name Role Phone Yessy Mondragon Primary Care Provider [phone] Reason for Visit * Auth/Cert Specialty Diagnoses / Procedures Referred By Maren granger Referred To Contact Diagnoses Hypertrophy of breast macromastia Procedures PRO BREAST REDUCTION REDUCTION MAMMOPLASTY, CHIQUIS (WRVU 16.03) MODIFIER GUEVARA Karl Rivera MD [facility] [place] [address] [facility] Referral ID Status Reason Start Date Expiration Date Visits Re quested Visits Authorized [id number] 1 1 Encounter Details Date Type Department Care Team (Late st Contact Info) Description 03/13/2022 7:30 AM EST - 03/13/2022 10:20 AM EST Surgery [place] [address] Karl Rivera MD [facility] [place] [address] REDUCTION MAMMOPLASTY, CHIQUIS (WRVU 16.03) Social History Tobacco Use Types Packs/Day Years [...] closest emergency room or call the hospital tractor operator laser leveling at [phone] and ask for physician space systems operations manager covering for your physician. Questions or problems after 5pm or on a weekend: Call the [facility] tractor operator laser leveling at and ask for the physician space systems operations manager covering for your doctor. * Patient Instructions* [...] good night sleep. Pain (short term and remote computer terminal operator) With any surgery there is some discomfort or pain. You should take both tylenol and ibuprofen. We will prescribe narcotic pain medication in case you require additional pain medication. Take as prescribed and only as needed. We recommend taking an ygaz-arg-Wccssii stool softener, such as Colace (docusate) or [...] about scheduling, please contact our administrative officesat [phone] For clinical questions, please call our nurses at [phone] Both offices are open Saturday thru Saturday 8a - 5p. With emergencies after hours, call the hospital tractor operator laser leveling at [phone] and ask for the Plastic Surgery Resident space systems operations manager. FOLLOW-UP APPOINTMENTS: Future Appointments Date Time Provider Department Center 03/20/2022 10:00 AM NURSE, PLASTIC SURGERY [address] documented in this encounter Medications at [...] condition with all belongings, [facility] and gave directions to get there. JOE [...] Proceed to OR for: Procedure(s): REDUCTION MAMMOPLASTY, CHIQUIS (WRVU 16.03) MODIFIER GUEVARA Opioid PDMP 01/25/2022 [place] PDMP Query Date 03/13/2022 [place] PDMP Query Date 03/13/2022 [place] PDMP Query Date 03/13/2022 [place] PDMP QUERY DATE: 03/13/22 Risk Assessment Category: [...] Operative Note Patient Name: Prabha Chen : [id number] MR#: [id number] Case Date: 03/13/2022 Surgeon: Surgeon(s) and Role: * Karl Rivera MD - Primary * Severo Donnelly PA - Physician Nurse Transition * Michael Jay MD - Resident Preoperative [...] fitting, review post-op activity restrictions 6 months: intermediate f/u with surgeon Future Appointments Date Time Provider Department Center 03/20/2022 10:00 AM NURSE, PLASTIC SURGERY [facility] [place] [address] [place] [address] * Op Note - Karl Rivera MD - 03/13/2022 7:53 AM EST [facility] Operative Note Patient Name: Prabha Chen : [id number] MR#: [id number] Case Date: 03/13/2022 Surgeon: Surgeon(s) and Role: * Karl Rivera MD - Primary * Severo Donnelly PA - Physician Nurse Transition * Michael Jay MD - Resident Preoperative [...] cookie cutter was used to andrew a pokagon around the right and left nipples we [...] 03/13/2022 7:35 AM EST Macromastia Breast Reduction (63085) 03/13/2022 7:35 AM EST Macromastia REDUCTION MAMMOPLASTY, BILATERAL Routine 03/13/2022 6:51 AM EST Macromastia documented in this encounter Results * Specimen to Pathology (03/13/2022 9:05 AM EST) AP Specimen 03/13/2022 9:05 AM EST 03/13/2022 9:05 AM EST Narrative [facility] - 03/13/2022 9:05 AM EST Specimen requisition ordered. ??Separate Pathology report to follow Karl Rivera MD PATHOLOGY/CYTOLOGY ORDERABLES [facility] [place] [address] * Specimen to Pathology (03/13/2022 9:05 AM EST) AP Specimen 03/13/2022 9:05 AM EST 03/13/2022 9:05 AM EST Narrative [facility] - 03/13/2022 9:05 AM EST Specimen requisition ordered. ??Separate Pathology report to follow Karl Rivera MD PATHOLOGY/CYTOLOGY ORDERABLES Performing Organization Address [facility] Co de Phone Number [facility] [place] [address] * Surgical Pathology Report (03/13/2022 9:03 AM EST) Final Diagnosis [id number] ? Location: [facility] The signing pathologist has [...] Verified: ??03/19/2022 9:22 ?? Pathologist Performed at: ??-[facility] Dept. of Pathology, [place] [address] Brewery Representative: Corry Ingram MD, FCAP, ??CLIA Certificate: [id number] SPECIMEN(S) SUBMITTED A - RIGHT BREAST REDUCATION 0.805 KG; excision (1) B - LEFT BREAST REDUCATION 0.895 KG; excision (1) CLINICAL INFORMATION Macromastia SPECIMEN PROCESSING A - Labeled/Fixativ e: Right breast reduction, fresh. Quantity/Size/W eight: Multiple, 21 x 18 x 5 cm, 800 g. Tissue Description: Fibrofatty breast tissue. Skin: Unremarkable. Sectioning: Adipose and dense, ohara-white fibrous tissue. Sections/Proces sing: Lacer And Tier sections in 3 cassettes labeled A1-A3. B - Labeled/Fixativ e: Left breast reduction, fresh. Quantity/Size/W eight: Multiple, 20 x 19 x 5 cm, 890 g. Tissue Description: Fibrofatty breast tissue. Skin: Unremarkable. Sectioning: Adipose and dense, ohara-white fibrous tissue. Sections/Proces sing: Lacer And Tier sections in 3 cassettes labeled B1-B3. ??sns 03/19/2022 9:22 AM EST [facility] BREAST STRUCTURE / Unknown 03/13/2022 9:03 AM EST 03/13/2022 9:03 AM EST BREAST STRUCTURE / Unknown 03/13/2022 9:03 AM EST 03/13/2022 9:03 AM EST Karl Rivera MD PATHOLOGY/CYTOLOGY ORDERABLES Performing Organization Address City/State/[facility] Co de Phone Number [facility] [place] [address] documented in this encounter Visit Diagnoses Diagnosis Macromastia Hypertrophy of breast Macromastia Hypertrophy of breast documented in this [...] 7:15 AM EST 1,000 mLs 100 mL/hr lidocaine-EPINEPHrine (1% - 1:100,000) injection ONCE PRN, Starting on Sat03/13/22 at 0918, Until Sat03/13/22 at 1244, Intra-Operative (Intra-Procedure), Routine Given 03/13/2022 9:18 AM EST 20 mLs 19- Surgical Site documented in this encounter Active and Recently [...] incision.) documented in this encounter Care Teams Oven Stripper Relationship Specialty Start Date End Date Yessy Mondragon PA [address] [address] PCP - General Family Medicine 8/31/22 documented as of this encounter
--- OUTSIDE RECORDS SUMMARY | 2024-01-16 13:42 | XMS_ITS | Encounter Summary ---
[place] [address] Care Team Providers Care Stencil Machine Operator Name Role Phone Johnnie Peck MD Primary Care Provider [phone] Encounter Details Date Type Department Care Team (Latest Contact Info) Description 11/01/2014 8:53 AM EDT - 11/01/2014 11:59 PM EDT Hospital En[place] [address] [facility] Discharge Disposition: Home Social History Tobacco Use [...] Sig Dispensed Refills Start Date End Date Vhlvnbtv-Ry-Guj-Fe-FA Tablet Take by mouth. 01/25/2022 documented as of this encounter Plan of Treatment Not on file documented as of this encounter Procedures Procedure Name Priority Date/Time Associated Diagnosis Comments US OB DETAILED MORPHOLOGY Routine 11/01/2014 10:18 AM EDT documented in this encounter Results * US OB Targeted Morphology (11/01/2014 10:18 AM EDT) Anatomical Region Laterality Modality Pelvis, Abdomen Ultrasound 11/01/2014 10:1 8 AM EDT Narrative 11/01/2014 11:51 AM EDT OBSTETRICS REPORT ?(Signed Final 11/01/2014 11:51 ? am) Patient Info ID #: ? [id number] ?: ??[birth year] (38 yrs) Name: ? CHAITANYA B MIDTHUN ?Visit Date: 11/01/2014 10:13 am Performed By Performed By: ?Jenn Nunez RDMS Attending: ? Usman MEYER E ??Chaitanya Referred By: ? NIDIA MERCADO CNM Service(s) Provided ??[facility] - Targeted Morphology - Genetics - ? 55450 ??[id number] ??UOBTV - Viability - Cervical Length - Transvaginal - ??[id number] ??[id number] Indications ??VICKIE BILKEENA CTC ??EDNA 03/15/15 OB History Blood Type: ?? A+ ? Height: ??5'8 ?? Weight: ?? 156 ? BMI: ??23.72 Evaluation Num Of Fetuses: ? 1 Heart ? 139 Rate(bpm): Cardiac Activity: ?? Observed, normal rhythm Presentation: ? Cephalic Placenta: ? Posterior Complete Previa P. Cord Insertion: ??Within Normal Limits Amniotic Fluid DISHA FV: ?Appropriate for gestational age -------- Biometry -------- BPD: ?50.9 ??mm ?G. Age: ?? 21w 3d OFD: ?64.7 ??mm HC: ?184.9 ??mm ?G. Age: ?? 20w 6d AC: ?170.6 ??mm ?G. Age: ?? 22w 0d FL: ? 37.1 ??mm ?G. Age: ?? 21w 6d HUM: ?35.9 ??mm ?G. Age: ?? 22w 4d CER: ?19.8 ??mm ?G. Age: ?? 18w 6d NFT: ? 4.3 ??mm NB: ?4.6 ??mm LV: ?6.2 ??mm CM: ?5.8 ??mm CI: ?78.7 ??% ? 70 - 86 FL/HC: ? 20.1 ??% ? 15.9 - 20.3 HC/AC: ? 1.08 ?1.06 - 1.25 FL/BPD: ?72.9 ??% FL/AC: ? 21.7 ??% ? Est. FW: ? 452 ?? gm ?1 lb Gestational Age LMP: ? 20w 6d ?Date: ??06/08/14 ? EDNA: ?? 03/15/15 U/S Today: ? 21w 4d ?EDNA: ?? 03/10/15 Best: ?20w 6d ?? Det. By: ??LMP ??(06/08/14) ?EDNA: ?? 03/15/15 Targeted Anatomy Central Nervous System Calvarium: ?Within Normal Limits Intracranial: ? Within Normal Limits Cavum: ?Visualized Lat. Ventricles: ?Within Normal Limits Cerebellum: ? Within Normal Limits Choroid Plexus: ? Unilateral choroid ple Cisterna Magna: ? Within Normal Limits Spine Cervical: ? Visualized Thoracic: ? Visualized Lumbar: ? Visualized Sacral: ? Visualized Head/Neck Face: ? Within Normal Limits Nuchal Fold: ?Within Normal Limits Eyes: ? Visualized Profile: ?Visualized Thorax Four Chamber: ? Within Normal Limits Cardiac Motion: ? Normal Rhythm R Outflow Tract: ?Visualized L Outflow Tract: ?Visualized Aortic Arch: ?Visualized Cardiac Clarendon: ? Visualized 3 Vessel View: ?Visualized Diaphragm: ?Visualized Abdomen Ventral Wall: ? Visualized Stomach: ?Visualized Lt Kidney: ?Visualized Rt Kidney: ?Visualized Bladder: ?Visualized Extremities Lt Humerus: ? Visualized Rt Humerus: ? Visualized Lt Forearm: ? Visualized Rt Forearm: ? Visualized Lt Hand: ?Visualized Rt Hand: ?Visualized Lt Femur: ? Visualized Rt Femur: ? Visualized Lt Lower Leg: ? Visualized Rt Lower Leg: ? Visualized Lt Foot: ?Visualized Rt Foot: ?Visualized Other Umbilical Cord: ? 3 vessel cord Cord Insertion: ? WIthin Normal Limits Comment: ? Nasal Bone: Visualized Doppler - Uterine Artery Right S/D Ratio: ? RI: ?PI: ?%Tile Left S/D Ratio: ?RI: ?PI: ?%Tile Cervix Uterus Adnexa Cervix Length: ? 3.6 ??cm. Closed; No change with fundal pressure Left Ovary Not visualized Right Ovary Not visualized Impression 2nd Trimester - Targeted Morphology- Summary Single intrauterine with a gestational age of 20w 6d based on LMP. Composite age based on the current ultrasound alone is 21w 4d. Current growth parameters are consistent indicating normal growth. Amniotic fluid volume is appropriate for gestational age. Detailed anatomic evaluation was performed. Unilateral choroid plexus cyst visualized. ??No other structural abnormalities are noted. Transvaginal imaging performed to evaluate placental location. ??The inferior tip of the posterior placenta completely covers the internal cervical os, c/w placenta previa. I ??viewed the images and agree with the above interpretation. ?Barb Mary MD Electronically Signed Final Report ?? 11/01/2014 11:51 am Procedure Note Barb Mary MD - 11/01/2014 OBSTETRICS REPORT (Signed Final 11/01/2014 11:51 am) Patient Info ID #: [id number] : [birth year] (38 yrs) Name: CHAITANYA Rolon MIDTHUN Visit Date: 11/01/2014 10:13 am Performed By Performed By: Jenn Nunez RDMS Attending: Barb Mary MD Referred By: NIDIA MERCADO [facility] Service(s) Provided [facility] - Targeted Morphology - Genetics - [id number] UOBTV - Viability - Cervical Length - Transvaginal - [id number] Indications AMA BILAT CTC EDNA 03/15/15 OB History Blood Type: A+ Height: 5'8 Weight: 156 BMI: 23.72 Evaluation Num Of Fetuses: 1 Heart 139 Rate(bpm): Cardiac Activity: Observed, normal rhythm Presentation: Cephalic Placenta: Posterior Complete Previa P. Cord Insertion: Within Normal Limits Amniotic Fluid DISHA FV: Appropriate for gestational age -------- Biometry -------- BPD: 50.9 mm G. Age: 21w 3d OFD: 64.7 mm HC: 184.9 mm G. Age: 20w 6d AC: 170.6 mm G. Age: 22w 0d FL: 37.1 mm G. Age: 21w 6d HUM: 35.9 mm G. Age: 22w 4d CER: 19.8 mm G. Age: 18w 6d NFT: 4.3 mm NB: 4.6 mm LV: 6.2 mm CM: 5.8 mm CI: 78.7 % 70 - 86 FL/HC: 20.1 % 15.9 - 20.3 HC/AC: 1.08 1.06 - 1.25 FL/BPD: 72.9 % FL/AC: 21.7 % 20 - 24 Est. FW: 452 gm 1 lb Gestational Age LMP: 20w 6d Date: 06/08/14 EDNA: 03/15/15 U/S Today: 21w 4d EDNA: 03/10/15 Best: 20w 6d Det. By: LMP (06/08/14) EDNA: 03/15/15 Targeted Anatomy Central Nervous System Calvarium: Within Normal Limits Intracranial: Within Normal Limits Cavum: Visualized Lat. Ventricles: Within Normal Limits Cerebellum: Within Normal Limits Choroid Plexus: Unilateral choroid ple Cisterna Magna: Within Normal Limits Spine Cervical: Visualized Thoracic: Visualized Lumbar: Visualized Sacral: Visualized Head/Neck Face: Within Normal Limits Nuchal Fold: Within Normal Limits Eyes: Visualized Profile: Visualized Thorax Four Chamber: Within Normal Limits Cardiac Motion: Normal Rhythm R Outflow Tract: Visualized L Outflow Tract: Visualized Aortic Arch: Visualized Cardiac Clarendon: Visualized 3 Vessel View: Visualized Diaphragm: Visualized Abdomen Ventral Wall: Visualized Stomach: Visualized Lt Kidney: Visualized Rt Kidney: Visualized Bladder: Visualized Extremities Lt Humerus: Visualized Rt Humerus: Visualized Lt Forearm: Visualized Rt Forearm: Visualized Lt Hand: Visualized Rt Hand: Visualized Lt Femur: Visualized Rt Femur: Visualized Lt Lower Leg: Visualized Rt Lower Leg: Visualized Lt Foot: Visualized Rt Foot: Visualized Other Umbilical Cord: 3 vessel cord Cord Insertion: WIthin Normal Limits Comment: Nasal Bone: Visualized Doppler - Uterine Artery Right S/D Ratio: RI: PI: %Tile Left S/D Ratio: RI: PI: %Tile Cervix Uterus Adnexa Cervix Length: 3.6 cm. Closed; No change with fundal pressure Left Ovary Not visualized Right Ovary Not visualized Impression 2nd Trimester - Targeted Morphology- Summary Single intrauterine with a gestational age of 20w 6d based on LMP. Composite age based on the current ultrasound alone is 21w 4d. Current growth parameters are consistent indicating normal growth. Amniotic fluid volume is appropriate for gestational age. Detailed anatomic evaluation was performed. Unilateral choroid plexus cyst visualized. No other structural abnormalities are noted. Transvaginal imaging performed to evaluate placental location. The inferior tip of the posterior placenta completely covers the internal cervical os, c/w placenta previa. I viewed the images and agree with the above interpretation. Barb Mary MD Electronically Signed Final Report 11/01/2014 11:51 am Nidia Mercado CNM IMG OB ORDERAB LES documented in this encounter Visit Diagnoses Not on filedocumented in this encounter Care Teams Stencil Machine Operator Relationship Specialty Start Date End Date Johnnie Peck MD [address] [place] [id number] PCP - General 10/29/14 01/02/22 documented as of this encounter
== END 2024-01-15 13:36 | disposition home or self-care (01) ==
LOC: LBN 13:35
PROVIDERS: PCP Physician Assistant; Visit Provider Physician Assistant
DX: Z12.4 Encounter for screening for malignant neoplasm of cervix (principal); R93.89 Abnormal findings on diagnostic imaging of other specified body structures
CPT/HCPCS: 88142; 87624

== ENCOUNTER 2024-01-30 16:03 | Outpatient (REF) | payer SELFPAY ==
[2024-01-30 19:44] LABS: Hemoglobin A1C 5.5 % (<5.7)
[2024-01-30 20:05] LABS: ALT 26 U/L (14-59); AST 18 U/L (15-37); Albumin 3.9 g/dL (3.4-5.0); Alkaline Phosphatase 66 U/L (46-116); Anion Gap 8.1 mmol/L (3-11); BUN 9 mg/dL (7-18); Bilirubin, Total 0.54 mg/dL (0.2-1.0); CO2 24.9 mmol/L (21.0-32.0); CREATININE 0.8 mg/dL (0.55-1.02); Calculated LDL 92 mg/dL (<100); Chloride 105 mmol/L (98-107); Cholesterol 167 mg/dL (<200); Estimated GFR 91.97 (mL/min/1.73m2); Glucose 104 mg/dL (74-106); HDL Cholesterol 56 mg/dL (40-60); Potassium 4.1 mmol/L (3.5-5.1); Sodium 138 mmol/L (136-145); Total Protein 7.8 g/dL (6.4-8.2); Triglyceride 95 mg/dL (<150)
[2024-02-03 10:24] LABS: HIV-1/2 Ag & Ab Screen Negative (Negative)
[2024-02-03 10:32] LABS: Hepatitis C Ab w Rflx HCV PCR Negative (Negative)
== END 2024-01-30 16:04 | disposition home or self-care (01) ==
LOC: NCHCN 16:03
PROVIDERS: PCP Physician Assistant; Visit Provider Physician Assistant
DX: Z11.4 Encounter for screening for human immunodeficiency virus [HIV] (principal); Z83.3 Family history of diabetes mellitus; Z11.59 Encounter for screening for other viral diseases
CPT/HCPCS: 80053; 80061; 86803; 87389; 83036